=== PATIENT | male | born 1980 | race Caucasian/White ===

== ENCOUNTER 2018-05-24 19:31 | Emergency (ER) | payer MEDICAID ==
[~2018-05-24] VITALS: Ht 185.4 cm; Wt 158.8 kg
[~2018-05-24 19:31] MED LIST: ACET500; ALBU90I INH; AMOCLA875 PO; AMOX500 PO; AMOX875 PO; ATOM10; AZIT250 PO; Bactrim Ds Tab1 EACH PO; CEPH500 PO; CYCL10 PO; Colace100 MG PO; Cyclobenzaprine5 MG PO; DEXGUASY PO; GLIM4 PO; GLIP5 PO; GUAPHELA PO; HYDACE5 PO; IBUP600 PO; IBUP800 PO; INSDET100; INSDET100 SC; INSDET100 SQ; ISODICACE PO; LEVFLO500 PO; MAGCIT300 PO; METF500 PO; METO10 PO; MUPI2TO TOP; NAPR500 PO; NAPR500ERA; NAPR550 PO; NYST100TC TOP; Norco 5-325 Ta1 EACH PO; OXYACE5T PO; PENVK500 PO; PHENA200 PO; PIOG30 PO; PRED10 PO; PROACE100 PO; Percocet 5-3251 EACH PO; Phenergan25 M1 PO; RXCEPH500 PO; RXHYDACE PO; RXNAPNA550 PO; RXOXYACE PO; RXPENVK250 PO; RXPHEN200 PO; RXPROACE PO; RXSULTRIDS PO; SULTRIDS PO; TRAM50 PO; UNKNOWN ANTIBIOTIC; Ultram50 MG PO; VICTOZA INJ SQ; Zofran Odt4 MG SL; [UNRECOGNIZED DRUG - REMARK]
[2018-05-24 20:20] LABS: BASOPHILS ABSOLUTE AUTO 0.05 K/mm3 (0.00-0.23); BASOPHILS PERCENT AUTO 0 % (0-2); EOSINOPHILS ABSOLUTE AUTO 0.17 K/mm3 (0.00-0.68); EOSINOPHILS PERCENT AUTO 1 % (0-6); Hematocrit 44.5 % (37.0-53.0); Hemoglobin 14.7 g/dL (13.5-17.5); IMMATURE GRAN ABSOLUTE AUTO 0.04 K/mm3 (0.00-0.10); IMMATURE GRAN PERCENT AUTO 0 % (0-1); LYMPHOCYTES ABSOLUTE AUTO 2.58 K/mm3 (0.84-5.20); LYMPHOCYTES PERCENT AUTO 19 % (21-46); MONOCYTES ABSOLUTE AUTO 0.93 K/mm3 (0.16-1.47); MONOCYTES PERCENT AUTO 7 % (4-13); Mean Corpuscular HGB 28.2 pg (26.0-34.0); Mean Corpuscular Volume 85 fL (80-100); Mean Platelet Volume 9.9 fL (9.1-12.4); NEUTROPHILS ABSOLUTE AUTO 9.88 K/mm3 (1.96-9.15); NEUTROPHILS PERCENT AUTO 72 % (41-73); Platelet Count 412 K/mm3 (150-400); RDW Coefficient Variation 12.5 % (11.7-14.2); RDW Standard Deviation 38.9 fL (35.1-46.3); Red Blood Cell Count 5.21 M/mm3 (4.30-5.90); White Blood Cell Count 13.65 K/mm3 (4.00-11.30)
[2018-05-24 20:31] LABS: Alanine Aminotransfer (ALT/SGP 30 U/L (12-78); Albumin, Blood 3.6 g/dL (3.4-5.0); Albumin/Globulin Ratio 0.8 (0.8-1.8); Alk Phos 88 U/L (50-136); Anion Gap 9 mmol/L (6-16); Aspartate Aminotrans (AST/SGOT 10 U/L (12-37); Bilirubin, Total 0.3 mg/dL (0.1-1.0); Blood Urea Nitrogen 18 mg/dL (8-24); Bun/Creatinine Ratio 24.8 (12.0-20.0); CO2, Blood 26 mmol/L (21-32); Calcium, Blood 8.9 mg/dL (8.5-10.1); Chloride, Blood 104 mmol/L (98-108); Creatinine, Blood 0.73 mg/dL (0.60-1.20); Globulin, Blood 4.7 g/dL (2.2-4.0); Glomerular Filtration Rate >60 (60-); Glucose, Blood 213 mg/dL (70-99); Potassium, Blood 4.2 mmol/L (3.5-5.5); Sodium, Blood 139 mmol/L (136-145); Total Protein, Blood 8.3 g/dL (6.4-8.2); Troponin I <0.015 ng/mL (0.000-0.040)
== END 2018-05-24 23:20 | disposition home or self-care (01) ==
LOC: ER 19:31
PROVIDERS: Physician Assistant
DX: R07.9 Chest pain, unspecified (principal); E11.9 Type 2 diabetes mellitus without complications; Z88.5 Allergy status to narcotic agent; Z79.84 Long term (current) use of oral hypoglycemic drugs; Z87.442 Personal history of urinary calculi
CPT/HCPCS: 36415; 71260; 80053; 84484; 85025; 93005; 93010; 93971; 96360; 96361; 99284-25; J7030; Q9967

== ENCOUNTER 2019-05-28 19:28 | Emergency (ER) | payer MEDICAID ==
[~2019-05-28] VITALS: Ht 185.4 cm; Wt 154.2 kg
[2019-05-28] MEDS ORDERED: Hydromet Syrup473 ML PO (20:18)
[2019-05-28] MEDS ORDERED: BENZ100A PO (20:18)
== END 2019-05-28 20:29 | disposition home or self-care (01) ==
LOC: ER 19:28
DX: J20.9 Acute bronchitis, unspecified (principal); Z88.5 Allergy status to narcotic agent; Z79.84 Long term (current) use of oral hypoglycemic drugs; Z79.4 Long term (current) use of insulin; E66.9 Obesity, unspecified
CPT/HCPCS: 71046; 99283-25

== ENCOUNTER 2019-10-21 18:42 | Emergency (ER) | payer SELFPAY ==
[~2019-10-21] VITALS: Ht 185.4 cm; Wt 160.6 kg
[~2019-10-21 18:42] MED LIST changes: +BENZ100A PO; +Hydromet Syrup473 ML PO
[2019-10-21] MEDS ORDERED: Norco 5-325 Ta1 EACH PO (20:04)
== END 2019-10-21 20:24 | disposition home or self-care (01) ==
LOC: ER 18:42
DX: S62.316A Displaced fracture of base of fifth metacarpal bone, right hand, initial encounter for closed fracture (principal); E11.9 Type 2 diabetes mellitus without complications; L40.9 Psoriasis, unspecified; Z88.5 Allergy status to narcotic agent; Z79.84 Long term (current) use of oral hypoglycemic drugs; W01.0XXA Fall on same level from slipping, tripping and stumbling without subsequent striking against object, initial encounter
CPT/HCPCS: 29125; 73110; 73120; 99283-25; A9270-GY

== ENCOUNTER 2020-01-31 16:59 | Emergency (ER) | payer SELFPAY ==
[~2020-01-31] VITALS: Ht 185.4 cm; Wt 158.8 kg
[2020-01-31] MEDS ORDERED: PENVK500 PO (17:21)
== END 2020-01-31 17:25 | disposition home or self-care (01) ==
LOC: ER 16:59
DX: K04.7 Periapical abscess without sinus (principal); E11.9 Type 2 diabetes mellitus without complications; Z79.84 Long term (current) use of oral hypoglycemic drugs; Z88.5 Allergy status to narcotic agent
CPT/HCPCS: 99282

== ENCOUNTER 2020-08-06 14:32 | Emergency (ER) | payer OTHER ==
[~2020-08-06] VITALS: Ht 185.4 cm; Wt 147.4 kg
[2020-08-06] MEDS ORDERED: Veetids 500500 MG PO (14:47)
== END 2020-08-06 14:53 | disposition home or self-care (01) ==
LOC: ER 14:32
DX: K04.7 Periapical abscess without sinus (principal); E11.9 Type 2 diabetes mellitus without complications; Z88.5 Allergy status to narcotic agent; Z79.4 Long term (current) use of insulin; Z87.442 Personal history of urinary calculi
CPT/HCPCS: 99282

== ENCOUNTER 2020-11-14 19:00 | Emergency (ER) | payer SELFPAY ==
[~2020-11-14] VITALS: Ht 182.9 cm; Wt 156.5 kg
[~2020-11-14 19:00] MED LIST changes: +Veetids 500500 MG PO
[2020-11-14 22:23] LABS: BASOPHILS ABSOLUTE AUTO 0.05 K/mm3 (0.00-0.23); BASOPHILS PERCENT AUTO 0 % (0-2); EOSINOPHILS PERCENT AUTO 3 % (0-6); Hematocrit 46.4 % (37.0-53.0); Hemoglobin 15.6 g/dL (13.5-17.5); IMMATURE GRAN ABSOLUTE AUTO 0.05 K/mm3 (0.00-0.10); IMMATURE GRAN PERCENT AUTO 0 % (0-1); LYMPHOCYTES ABSOLUTE AUTO 2.55 K/mm3 (0.84-5.20); LYMPHOCYTES PERCENT AUTO 21 % (21-46); MONOCYTES ABSOLUTE AUTO 0.87 K/mm3 (0.16-1.47); MONOCYTES PERCENT AUTO 7 % (4-13); Mean Corpuscular HGB 28.6 pg (26.0-34.0); Mean Corpuscular HGB Conc 33.6 g/dL (31.5-36.5); Mean Corpuscular Volume 85 fL (80-100); Mean Platelet Volume 10.7 fL (9.1-12.4); NEUTROPHILS ABSOLUTE AUTO 8.03 K/mm3 (1.96-9.15); NEUTROPHILS PERCENT AUTO 67 % (41-73); Platelet Count 322 K/mm3 (150-400); RDW Coefficient Variation 12.7 % (11.7-14.2); RDW Standard Deviation 38.6 fL (35.1-46.3); Red Blood Cell Count 5.45 M/mm3 (4.30-5.90); White Blood Cell Count 11.95 K/mm3 (4.00-11.30)
[2020-11-14 22:44] LABS: Alanine Aminotransfer (ALT/SGP 32 U/L (12-78); Albumin, Blood 3.4 g/dL (3.4-5.0); Albumin/Globulin Ratio 0.8 (0.8-1.8); Alk Phos 98 U/L (50-136); Anion Gap 6 mmol/L (6-16); Aspartate Aminotrans (AST/SGOT 19 U/L (12-37); Bilirubin, Total 0.5 mg/dL (0.1-1.0); Blood Urea Nitrogen 13 mg/dL (8-24); CO2, Blood 29 mmol/L (21-32); Calcium, Blood 9.3 mg/dL (8.5-10.1); Chloride, Blood 102 mmol/L (98-108); Creatinine, Blood 0.52 mg/dL (0.60-1.20); Globulin, Blood 4.5 g/dL (2.2-4.0); Glomerular Filtration Rate >60 (60-); Glucose, Blood 301 mg/dL (70-99); Potassium, Blood 4.4 mmol/L (3.5-5.5); Sodium, Blood 137 mmol/L (136-145); Total Protein, Blood 7.9 g/dL (6.4-8.2); Troponin I <0.015 ng/mL (0.000-0.040)
== END 2020-11-14 23:53 | disposition home or self-care (01) ==
LOC: ER 19:00
PROVIDERS: Emergency Medicine
DX: R07.89 Other chest pain (principal); E11.9 Type 2 diabetes mellitus without complications; Z88.5 Allergy status to narcotic agent; Z79.4 Long term (current) use of insulin; Z87.442 Personal history of urinary calculi
CPT/HCPCS: 36415; 71046; 80053; 84484; 85025; 85379; 93005; 93010; 96374; 99284-25; J1885

== ENCOUNTER 2021-01-09 09:41 | Emergency (ER) | payer SELFPAY ==
[~2021-01-09] VITALS: Ht 185.4 cm; Wt 149.7 kg
== END 2021-01-09 10:52 | disposition home or self-care (01) ==
LOC: ER 09:41
DX: H57.89 Other specified disorders of eye and adnexa (principal); E11.9 Type 2 diabetes mellitus without complications; Z87.442 Personal history of urinary calculi
CPT/HCPCS: 99283; A9270

== ENCOUNTER 2021-05-11 16:38 | Emergency (ER) | payer SELFPAY ==
[~2021-05-11] VITALS: Ht 185.4 cm; Wt 149.7 kg
[2021-05-11] MEDS ORDERED: SULTRIDS PO (20:28)
[2021-05-11] MEDS ORDERED: IBUP600 PO (20:28)
== END 2021-05-11 20:57 | disposition home or self-care (01) ==
LOC: ER 16:38
DX: L03.115 Cellulitis of right lower limb (principal); L02.415 Cutaneous abscess of right lower limb; E11.9 Type 2 diabetes mellitus without complications
CPT/HCPCS: 10060; 99283-25; A9270

== ENCOUNTER 2022-03-26 14:13 | Inpatient (IN) | payer SELFPAY ==
[~2022-03-26] VITALS: Ht 185.4 cm; Wt 150.0 kg
[2022-03-26 15:23] LABS: BASOPHILS ABSOLUTE AUTO 0.03 K/mm3 (0.00-0.23); BASOPHILS PERCENT AUTO 0 % (0-2); EOSINOPHILS ABSOLUTE AUTO 0.07 K/mm3 (0.00-0.68); EOSINOPHILS PERCENT AUTO 0 % (0-6); Hematocrit 44.3 % (37.0-53.0); IMMATURE GRAN ABSOLUTE AUTO 0.12 K/mm3 (0.00-0.10); IMMATURE GRAN PERCENT AUTO 1 % (0-1); LYMPHOCYTES ABSOLUTE AUTO 1.52 K/mm3 (0.84-5.20); LYMPHOCYTES PERCENT AUTO 7 % (21-46); MONOCYTES ABSOLUTE AUTO 2.02 K/mm3 (0.16-1.47); MONOCYTES PERCENT AUTO 10 % (4-13); Mean Corpuscular HGB 28.3 pg (26.0-34.0); Mean Corpuscular HGB Conc 33.9 g/dL (31.5-36.5); Mean Corpuscular Volume 84 fL (80-100); NEUTROPHILS ABSOLUTE AUTO 17.05 K/mm3 (1.96-9.15); NEUTROPHILS PERCENT AUTO 82 % (41-73); Platelet Count 399 K/mm3 (150-400); RDW Standard Deviation 36.7 fL (35.1-46.3); White Blood Cell Count 20.81 K/mm3 (4.00-11.30)
[2022-03-26 15:52] LABS: Alanine Aminotransfer (ALT/SGP 19 U/L (12-78); Albumin, Blood 2.8 g/dL (3.4-5.0); Albumin/Globulin Ratio 0.5 (0.8-1.8); Alk Phos 106 U/L (50-136); Anion Gap 13 mmol/L (6-16); Aspartate Aminotrans (AST/SGOT 14 U/L (12-37); Blood Urea Nitrogen 11 mg/dL (8-24); Bun/Creatinine Ratio 17.9 (12.0-20.0); C-REACTIVE PROTEIN, EXT RANGE >19.000 mg/dL (0.000-0.300); CO2, Blood 21 mmol/L (21-32); Calcium, Blood 9.3 mg/dL (8.5-10.1); Chloride, Blood 97 mmol/L (98-108); Creatinine, Blood 0.61 mg/dL (0.60-1.20); Globulin, Blood 5.3 g/dL (2.2-4.0); Glomerular Filtration Rate 125 (60-); Glucose, Blood 299 mg/dL (70-99); Potassium, Blood 4.3 mmol/L (3.5-5.5); Sodium, Blood 131 mmol/L (136-145); Total Protein, Blood 8.1 g/dL (6.4-8.2)
[2022-03-26 19:54] LABS: Influenza A, PCR NEGATIVE (NEGATIVE); Influenza B, PCR NEGATIVE (NEGATIVE); Resp Syncytial Virus, PCR NEGATIVE (NEGATIVE)
[2022-03-26 20:08] LABS: SARS-Cov-2 (COVID-19) PCR, MMC POSITIVE (NEGATIVE)
--- NOTE | 2022-03-26 21:14 | NUR ---
03/26/222113 Malika Bar NO PREOP ANTIBIOTICS PATIENT RECEIVED ANTIBIOTICS PRIOR TO ARRIVING IN THE OR.
--- NOTE | 2022-03-26 22:40 | NUR ---
TRANSPORTED TO ROOM FROM ICU RECOVERY VIA STRETCHER. TRANFERED TO BED USING SLING AND FULL STAFF ASSISTANCE, TOLERATED WELL. RECEIVED HAND OFF USING SBAR AT BEDSIDE FROM Manju WARREN RN. [place], FOLLOWS ALL COMMADS. LEFT AND RIGHT AC SL PIV'S ARE PATENT. RIGHT AC PIV STARTED WITH NS AT 150ML/HR. SENIOR DATABASE ADMINISTRATOR FENTANYL ORDERED, WILL GET STARTED SREEKANTH. LEFT AC PIV AVAILABLE FOR ANTIBOTICS WHEN DUE. PERLA CATH IS PATENT, DRAINING CONCENTRATED URINE TO GRAVITY. REDNESS AND EDEMA NOTED TO GROIN. GAUZE HELD IN PLACE VIA MADONNA PANTIES. SCD'S TO BLE ARE IN PLACE AND WORKING PROPERLY. SAFETY MEASURES IN PLACE. WILL CONTINUNE TO MONITOR AND ADDRESS CHANGES THE OCCUR.
--- NOTE | 2022-03-27 05:31 | NUR ---
LYING IN SEMI FOWLERS WITH EYES CLOSED. CPAP IN PLACE WITH BIOX. LEFT HIP DRESSING IN PLACE AND IS C/D/I. PT HAS GOTTEN OOB TO URINATE X2 THIS SHIFT AND HAS TOLERATED WELL. PIV X2 TO BIATERAL AC'S ARE PATENT, FLUSHING WITH EASE WHILE INFUSING NS AT 150ML/HR TO LEFT AC WITH DEMAND ONLY GRANULATING BLENDER AND KVO NS TO RIGHT AC PIV. GROIN/ZAYNAB AREA RED AND COVERED IN GAUZE WITH MESH PANTIES IN PLACE. DENIES PAIN, DISCOMFORT OR FURTHER NEEDS AT THIS TIME. SAFETY MEASURES IN PLACE. WILL CONTINUE TO MONITOR FOR CHANGES AND ADDRESS THEY ARISE. WILL GIVE HAND OFF TO ONCOMING SHIFT USING SBAR.
[2022-03-27 05:35] LABS: Hematocrit 38.5 % (37.0-53.0); Hemoglobin 13.2 g/dL (13.5-17.5); Mean Corpuscular HGB 28.4 pg (26.0-34.0); Mean Corpuscular HGB Conc 34.3 g/dL (31.5-36.5); Mean Corpuscular Volume 83 fL (80-100); Platelet Count 372 K/mm3 (150-400); RDW Standard Deviation 36.8 fL (35.1-46.3); Red Blood Cell Count 4.64 M/mm3 (4.30-5.90)
[2022-03-27 06:05] LABS: Bun/Creatinine Ratio 22.3 (12.0-20.0); Calcium, Blood 8.5 mg/dL (8.5-10.1); Creatinine, Blood 0.49 mg/dL (0.60-1.20); Potassium, Blood 4.6 mmol/L (3.5-5.5)
--- NOTE | 2022-03-27 12:16 | NUR ---
FAMILY VISITING PT
--- NOTE | 2022-03-27 18:32 | NUR ---
SHIFT SUMMARY: VSS, NO ACUTE CHANGES. PT TOLERATED PO INTAKE WELL, DENIES N/V. PT RATES PAIN AT 4/10 AFTER UP IN BATHROOM AND URINATING, STANDING IN ROOM. MEDICATED PER OCT. PERLA CATHETER REMOVED THIS SHIFT. WOUND DRESSING/PACKING CHANGED THIS THIS. WOUND WITH MODERATE DRAINAGE, DRESSING REMAINS C/D/I. PT URINATED APPROX 2 HRS AFTER PERLA REMOVAL.
[2022-03-28 05:26] LABS: BASOPHILS ABSOLUTE AUTO 0.04 K/mm3 (0.00-0.23); BASOPHILS PERCENT AUTO 0 % (0-2); EOSINOPHILS ABSOLUTE AUTO 0.02 K/mm3 (0.00-0.68); EOSINOPHILS PERCENT AUTO 0 % (0-6); Hematocrit 38.7 % (37.0-53.0); Hemoglobin 13.1 g/dL (13.5-17.5); IMMATURE GRAN PERCENT AUTO 1 % (0-1); LYMPHOCYTES ABSOLUTE AUTO 1.21 K/mm3 (0.84-5.20); LYMPHOCYTES PERCENT AUTO 6 % (21-46); MONOCYTES ABSOLUTE AUTO 1.76 K/mm3 (0.16-1.47); MONOCYTES PERCENT AUTO 9 % (4-13); Mean Corpuscular HGB 28.5 pg (26.0-34.0); Mean Corpuscular HGB Conc 33.9 g/dL (31.5-36.5); Mean Corpuscular Volume 84 fL (80-100); NEUTROPHILS ABSOLUTE AUTO 15.97 K/mm3 (1.96-9.15); NEUTROPHILS PERCENT AUTO 84 % (41-73); Platelet Count 419 K/mm3 (150-400); RDW Coefficient Variation 12.3 % (11.7-14.2); RDW Standard Deviation 37.4 fL (35.1-46.3); Red Blood Cell Count 4.59 M/mm3 (4.30-5.90)
--- NOTE | 2022-03-28 05:44 | NUR ---
LYING IN SEMI FOLWERS WITH EYES CLOSED. PAIN MANAGED WITH PO PAIN MEDS. PT ABLE TO REST WELL THIS SHIFT. AMBULATED TO COMMODE WITHOUT ASSISTANCE, TOLERATES WELL. DENIES FURTHER NEEDS OR WANTS AT THIS TIME. SAFETY MEASURES IN PLACE. WILL CONTINUE TO MONITOR AND ADDRESS NEEDS THEY ARISE.
[2022-03-28 05:48] LABS: Bun/Creatinine Ratio 33.1 (12.0-20.0); Calcium, Blood 8.7 mg/dL (8.5-10.1); Creatinine, Blood 0.48 mg/dL (0.60-1.20); Potassium, Blood 4.3 mmol/L (3.5-5.5)
--- NOTE | 2022-03-28 11:04 | NUR ---
dr rose mary sharma, removed dressing, pt showering now, will repack after shower
--- NOTE | 2022-03-28 18:08 | NUR ---
SHIFT SUMMARY: PT REMAINED A/O X 4, PLEASANT/COOPERATIVE, NO ACUTE CHANGES. PT AMBULATED IN HALLWAY, SHOWERED, TOLERATED PO INTAKE, PAIN CONTROLLED PER OCT, DRESSING CHANGED, CBG BETWEEN 300-311 THIS SHIFT, MEDICATED PER OCT. PT'S WITH PT T/O MUCH OF THE SHIFT. PT RELAYS HE IS FEELING "WORN OUT" AFTER ACTIVITY, APPEARS TO BE NAPPING ON SEVERAL NURSE ROUNDINGS.
--- NOTE | 2022-03-29 04:27 | NUR ---
POD 3 S/P I&D OF R GROIN. PT VSS T/O NIGHT. DRESSING REMAINED IN PLACE W/SMALL AMT SS DRNG. PT HESITANT TO TAKE PAIN MEDS, DID TAKE 1 OXYCODONE W/REP RELIEF. PT CAROLE REG PO, NO C/O N/V, IS VOIDING URINE W/O DIFFICULTY. PT AMB INDEP IN ROOM, CAROLE WELL. EDUCATION R/T DM AND MEDICATIONS PROVIDED.
--- NOTE | 2022-03-29 19:54 | NUR ---
SHIFT SUMMARY POD3 R GROIN I&D, A/O X4, VSS TOLERATING PO, PAIN MANAGED PER EMAR, VOIDING, BM THIS SHIFT WITH REPORTS OF LOOSE STOOLS AND ADRESSED BY HOSPITALIST. BLOOD SUGAR POORLY MANAGED WITH INCREASE TO HIGH CORRECTION SCALE AND CONTINUED HIGH SUGARS. DRESSING CHANGED ONCE BY SURGEON AND 2 MORE TIMES BY THIS RN, PT TOOK 2 SHOWERS THIS SHIFT. CALL LIGHT IN REACH, REPORT GIVEN TO NOC RN.
--- NOTE | 2022-03-30 04:51 | NUR ---
VSS, POD 4, PT HAS BEEN NPO SINCE 0000 ON 03/30/22. PT HAS NOT HAD DIARRHEA TONIGHT, VOIDING W/O DIFFICULTY. THE PT WAS MEDICATED PER THE EMAR FOR BACK PAIN. PERINEAL DRESSING REMAINED C/D/I. PT WAS ABLE TO SLEEP T/O THE NIGHT.
[2022-03-30 05:17] LABS: BASOPHILS ABSOLUTE AUTO 0.04 K/mm3 (0.00-0.23); BASOPHILS PERCENT AUTO 0 % (0-2); EOSINOPHILS ABSOLUTE AUTO 0.12 K/mm3 (0.00-0.68); EOSINOPHILS PERCENT AUTO 1 % (0-6); Hematocrit 36.7 % (37.0-53.0); Hemoglobin 12.5 g/dL (13.5-17.5); IMMATURE GRAN ABSOLUTE AUTO 0.09 K/mm3 (0.00-0.10); IMMATURE GRAN PERCENT AUTO 1 % (0-1); LYMPHOCYTES ABSOLUTE AUTO 1.81 K/mm3 (0.84-5.20); LYMPHOCYTES PERCENT AUTO 13 % (21-46); MONOCYTES ABSOLUTE AUTO 1.55 K/mm3 (0.16-1.47); MONOCYTES PERCENT AUTO 12 % (4-13); Mean Corpuscular HGB 28.6 pg (26.0-34.0); Mean Corpuscular HGB Conc 34.1 g/dL (31.5-36.5); Mean Corpuscular Volume 84 fL (80-100); Mean Platelet Volume 9.7 fL (9.1-12.4); NEUTROPHILS PERCENT AUTO 73 % (41-73); Platelet Count 455 K/mm3 (150-400); RDW Coefficient Variation 12.1 % (11.7-14.2); RDW Standard Deviation 37.2 fL (35.1-46.3); Red Blood Cell Count 4.37 M/mm3 (4.30-5.90); White Blood Cell Count 13.51 K/mm3 (4.00-11.30)
[2022-03-30 05:35] LABS: Bun/Creatinine Ratio 19.5 (12.0-20.0); Calcium, Blood 8.6 mg/dL (8.5-10.1); Creatinine, Blood 0.41 mg/dL (0.60-1.20); Potassium, Blood 3.6 mmol/L (3.5-5.5)
--- NOTE | 2022-03-30 15:22 | NUR ---
PATIENT TO DAY SURGERY VIA [place] WITH DEIRDRE FRANCIS.
--- NOTE | 2022-03-30 15:53 | NUR ---
History, Chart, Medications and Allergies reviewed before start of procedure.Pre-Op teaching done. Pt verbalizes understanding. Patient confirms NPO status and agrees with scheduled surgery.
--- NOTE | 2022-03-30 17:02 | NUR ---
03/30/22 1702 Kathie Cobos [facility]
--- NOTE | 2022-03-30 18:10 | NUR ---
PATIENT RETURNED TO ROOM FROM PACU. VSS ON RA. LUNGS CLEAR. PATIENT STOOD AND TRANSFERRED FROM [facility] TO BED, DID VERY WELL. WANDA DRAIN TO R GROIN W/ GAUZE AND MESH UNDERWEAR HOLDING GAUZE IN PLACE. TOLERATING CLEAR LIQUIDS AT THIS TIME. CALL LIGHT IN REACH.
--- NOTE | 2022-03-31 04:02 | NUR ---
VSS, POD0 FOR 2ND I&D OF THE RIGHT GROIN. THE PT HAS NOT SLEPT MUCH TONIGHT, HE IS VERY UNCOMFORTABLE IN THE HOSPITAL BED. T/O THE NIGHT I HAVE BEEN ASSESSING THE PATIENTS PAIN LEVEL AND HE HAS REPORTED LITTLE TO NO PAIN, PT DENIES NEED FOR PAIN MEDS. PT IS AMBULATING INDEPENDENTLY TO THE BATHROOM TO HAVE BM'S. BOWEL AND BLADDER ARE WORKING W/O DIFFICULTY. PT IS TOLLERATING PO INTAKE WELL, NO N/V. THE OUTTER 4X4'S AND ABD PAD WERE REPLACED ONCE DURING THE SHIFT DUE TO THEM FALLING OFF IN THE BATHROOM. PT HAS REMAINED PLEASENT AND COOPERTIVE WITH CARE, VOICING NEEDS APPROPRIATELY.
--- NOTE | 2022-03-31 17:02 | NUR ---
SHIFT SUMMARY POD 1 REPEAT I&D OF R GROIN ABCESS. WANDA DRAINS REMAIN IN [place] WITH PACKING AND GAUZE WELL. CHANGED X2 THIS SHIFT D/T DIFFICULTY KEEPING IN PLACE WHEN GOING TO THE BATHROOM AND MOVING AROUND. PATIENT TOLERATES WELL, DENIES PAIN AND NEED FOR PAIN MEDICATION. UP IN ROOM, AMBULATIING HALLS, AND UP TO BATHROOM T/O SHIFT. EATING, DRINKING, & VOIDING WELL. BM TODAY. CBG'S REMAIN HIGH, INSULING COVERAGE PER EMAR. CALLS APPROPRIATELY, WILL REPORT TO ONCOMING RN.
--- NOTE | 2022-03-31 22:41 | NUR ---
CBG 394- PER SCALE,PT IS TO TO RECEIVE [address]Karri CALLED DR COOK AND NOTIFIED OF CBG AND INSULIN TO BE GIVEN PER SCALE WELL PER ROUTINE ORDERS- GLARGINE 40 UNITS. NO NEW ORDERS RECEIVED.
[2022-04-01 04:17] LABS: BASOPHILS ABSOLUTE AUTO 0.05 K/mm3 (0.00-0.23); BASOPHILS PERCENT AUTO 0 % (0-2); EOSINOPHILS ABSOLUTE AUTO 0.19 K/mm3 (0.00-0.68); EOSINOPHILS PERCENT AUTO 2 % (0-6); Hemoglobin 12.9 g/dL (13.5-17.5); IMMATURE GRAN ABSOLUTE AUTO 0.18 K/mm3 (0.00-0.10); IMMATURE GRAN PERCENT AUTO 1 % (0-1); LYMPHOCYTES ABSOLUTE AUTO 2.25 K/mm3 (0.84-5.20); LYMPHOCYTES PERCENT AUTO 18 % (21-46); MONOCYTES ABSOLUTE AUTO 1.08 K/mm3 (0.16-1.47); MONOCYTES PERCENT AUTO 9 % (4-13); Mean Corpuscular HGB 27.9 pg (26.0-34.0); Mean Corpuscular HGB Conc 33.1 g/dL (31.5-36.5); Mean Corpuscular Volume 84 fL (80-100); Mean Platelet Volume 9.4 fL (9.1-12.4); NEUTROPHILS ABSOLUTE AUTO 8.72 K/mm3 (1.96-9.15); NEUTROPHILS PERCENT AUTO 70 % (41-73); Platelet Count 538 K/mm3 (150-400); RDW Coefficient Variation 12.3 % (11.7-14.2); RDW Standard Deviation 37.1 fL (35.1-46.3); Red Blood Cell Count 4.62 M/mm3 (4.30-5.90); White Blood Cell Count 12.47 K/mm3 (4.00-11.30)
[2022-04-01 04:39] LABS: Calcium, Blood 8.6 mg/dL (8.5-10.1); Creatinine, Blood 0.6 mg/dL (0.60-1.20); Potassium, Blood 3.8 mmol/L (3.5-5.5)
--- NOTE | 2022-04-01 07:37 | NUR ---
summary hoping for discharge today.
--- NOTE | 2022-04-01 07:47 | NUR ---
ASSUMED CARE: PT SITTING UPRIGHT IN BED, TALKING TO STAFF DURING BEDSIDE REPORT. DENIES NEEDS OR CONCERNS AT THIS TIME.
[2022-04-01] MEDS ORDERED: Acetaminophen325 M1 PO (11:07)
[2022-04-01] MEDS ORDERED: INSULANPEN SC (11:08)
[2022-04-01] MEDS ORDERED: VISBIOME 112.51 EACH PO (11:10)
[2022-04-01] MEDS ORDERED: AMOCLA875 PO (11:13)
[2022-04-01] MEDS ORDERED: HUMULIN R100 UNIT/2 IM (11:57)
[2022-04-01] MEDS ORDERED: ANTIFUNGAL POWD85 GM TOP (11:58)
--- NOTE | 2022-04-01 12:18 | NUR ---
DISCHARGE NOTE PT A&Ox4, VSS, SpO2> 92% RA. PT IND IN ROOM. FAMILY AT BEDSIDE WHILE DISCHARGE INSTRUCTIONS WERE PROVIDED. DISCUSSED USE OF INSULIN PENS AND READING THE MEDIUM SLIDING SCALE CHART. PT GETTING DRESSED AND FAMILY GATHERING BELONGINGS. PT TO BE ESCORTED OUT VIA WHEELCHAIR BY STAFF.
== END 2022-04-01 12:35 | disposition home or self-care (01) | DRG 853 ==
LOC: ER 14:13 → SURS 20:13
PROVIDERS: Internal Medicine; Physician Assistant; Student in an Organized Health Care Education/Training Program; Surgery; ADMIT Internal Medicine
PROC: 0WBM0ZZ Excision of Male Perineum, Open Approach (ICD-10-PCS; 2022-03-26)
PROC: 8E0ZXY6 Isolation (ICD-10-PCS; 2022-03-26)
PROC: 0W9M0ZZ Drainage of Male Perineum, Open Approach (ICD-10-PCS; 2022-03-26)
PROC: 3E03329 Introduction of Other Anti-infective into Peripheral Vein, Percutaneous Approach (ICD-10-PCS; principal; 2022-03-26 19:45)
PROC: 0Y950ZZ Drainage of Right Inguinal Region, Open Approach (ICD-10-PCS; 2022-03-30)
DX: A41.01 Sepsis due to Methicillin susceptible Staphylococcus aureus (principal); U07.1 COVID-19; L02.214 Cutaneous abscess of groin; E87.1 Hypo-osmolality and hyponatremia; L02.215 Cutaneous abscess of perineum; N49.3 Fournier gangrene; E66.01 Morbid (severe) obesity due to excess calories; E11.9 Type 2 diabetes mellitus without complications; N47.1 Phimosis; L40.9 Psoriasis, unspecified; Z68.35 Body mass index [BMI] 35.0-35.9, adult; Z87.442 Personal history of urinary calculi; Z90.89 Acquired absence of other organs; Z79.84 Long term (current) use of oral hypoglycemic drugs
CPT/HCPCS: 0241U; 36415; 71045; 72193; 80048; 80053; 82947; 83036; 83605; 85025; 85027; 86140; 87040; 87070; 87075; 87077; 87147; 87186; 87205; 93005; 93010; 96365-59; 96367-59; 96375-59; 99285-25; A9270; C9113; J0295; J1100; J1650; J1815; J2250; J2270; J2405; J2543; J2704; J2710; J2765; J2795; J3010; J3370; J7030; J7040; J7060; J7120; Q9967

== ENCOUNTER 2022-04-16 08:06 | Day surgery (SDC) | payer SELFPAY ==
[~2022-04-16] VITALS: Ht 182.9 cm; Wt 147.5 kg
[~2022-04-16 08:06] MED LIST changes: +ANTIFUNGAL POWD85 GM TOP; +Acetaminophen325 M1 PO; +HUMULIN R100 UNIT/2 IM; +INSULANPEN SC; +VISBIOME 112.51 EACH PO
--- NOTE | 2022-04-16 11:45 | NUR ---
DR BLACKWOOD INSTRUCTED RN THAT SHE DID NOT HAVE TO TAKE ANOTHER BS IN PACU
--- NOTE | 2022-04-16 11:54 | NUR ---
PT STATES THAT HE HAS TAKEN NORCO BEFORE WITHOUT ANY PROBLEM
--- NOTE | 2022-04-16 13:13 | NUR ---
Patient up to Ambulate independently. Gait steady. Discharge instructions reviewed with patient. Patient verbalizes understanding. Copy given to patient to take home, WELL . Patient States Post-Procedure ride home has been arranged. Discharged via wheelchair to private car for ride home. PT GIVEN DRESSING SUPPLIES. PT'S REPORTS THAT DR STATED THAT HE WAS ELECTRONICALLY SENDING NEW ABX SCRIPT TO PT'S PHARMACY.
== END 2022-04-16 13:13 | disposition home or self-care (01) ==
LOC: ORD 08:06 → ORSCMMR 08:07 → ORD 09:00
PROVIDERS: Surgery
PROC: 0J9L0ZZ Drainage of Right Upper Leg Subcutaneous Tissue and Fascia, Open Approach (ICD-10-PCS; principal; 2022-04-16 11:00)
DX: L02.214 Cutaneous abscess of groin (principal); E11.9 Type 2 diabetes mellitus without complications; I25.2 Old myocardial infarction; Z79.84 Long term (current) use of oral hypoglycemic drugs; Z88.5 Allergy status to narcotic agent; E66.01 Morbid (severe) obesity due to excess calories; Z68.41 Body mass index [BMI] 40.0-44.9, adult
CPT/HCPCS: 82947; A9270; J1100; J2250; J2405; J2704; J3010; J7120

== ENCOUNTER → 2022-04-30 | Outpatient (CLI) | payer SELFPAY ==
[2022-04-30 14:13] LABS: BASOPHILS ABSOLUTE AUTO 0.06 K/mm3 (0.00-0.23); BASOPHILS PERCENT AUTO 1 % (0-2); EOSINOPHILS PERCENT AUTO 2 % (0-6); Hematocrit 40.9 % (37.0-53.0); Hemoglobin 13.7 g/dL (13.5-17.5); IMMATURE GRAN ABSOLUTE AUTO 0.06 K/mm3 (0.00-0.10); IMMATURE GRAN PERCENT AUTO 1 % (0-1); LYMPHOCYTES ABSOLUTE AUTO 2.55 K/mm3 (0.84-5.20); LYMPHOCYTES PERCENT AUTO 22 % (21-46); MONOCYTES ABSOLUTE AUTO 1.03 K/mm3 (0.16-1.47); MONOCYTES PERCENT AUTO 9 % (4-13); Mean Corpuscular HGB 28.2 pg (26.0-34.0); Mean Corpuscular HGB Conc 33.5 g/dL (31.5-36.5); Mean Corpuscular Volume 84 fL (80-100); Mean Platelet Volume 10.3 fL (9.1-12.4); NEUTROPHILS ABSOLUTE AUTO 7.77 K/mm3 (1.96-9.15); NEUTROPHILS PERCENT AUTO 67 % (41-73); Platelet Count 456 K/mm3 (150-400); RDW Coefficient Variation 13.4 % (11.7-14.2); RDW Standard Deviation 41.1 fL (35.1-46.3); Red Blood Cell Count 4.86 M/mm3 (4.30-5.90); White Blood Cell Count 11.67 K/mm3 (4.00-11.30)
[2022-04-30 14:50] LABS: Very Low Density Lipoprot Chol 31 mg/dL (6-28)
[2022-04-30 14:53] LABS: Alanine Aminotransfer (ALT/SGP 23 U/L (12-78); Albumin, Blood 3.1 g/dL (3.4-5.0); Albumin/Globulin Ratio 0.8 (0.8-1.8); Alk Phos 99 U/L (50-136); Anion Gap 2 mmol/L (6-16); Aspartate Aminotrans (AST/SGOT 8 U/L (12-37); Bilirubin, Total 0.3 mg/dL (0.1-1.0); Blood Urea Nitrogen 19 mg/dL (8-24); Bun/Creatinine Ratio 30.5 (12.0-20.0); CHOL/HDL RATIO 5.1; CO2, Blood 31 mmol/L (21-32); Calcium, Blood 9.8 mg/dL (8.5-10.1); Chloride, Blood 102 mmol/L (98-108); Cholesterol 168 mg/dL (50-200); Creatinine, Blood 0.62 mg/dL (0.60-1.20); Globulin, Blood 3.9 g/dL (2.2-4.0); Glomerular Filtration Rate 125 (60-); Glucose, Blood 319 mg/dL (70-99); HDL Cholesterol 33 mg/dL (>39); LDL/HDL RATIO 3.2; Low Density Lipoprotein Chol 104 mg/dL (0-110); Potassium, Blood 4.5 mmol/L (3.5-5.5); Sodium, Blood 135 mmol/L (136-145); Triglycerides 155 mg/dL (30-140)
== END | disposition home or self-care (01) ==
LOC: LAB SHORT 10:45
PROVIDERS: Family Medicine
DX: Z51.81 Encounter for therapeutic drug level monitoring (principal); Z79.899 Other long term (current) drug therapy
CPT/HCPCS: 80053; 80061; 85025

== ENCOUNTER → 2022-05-31 | Outpatient (CLI) | payer SELFPAY | END | disposition home or self-care (01) | LOC: LAB 17:41 → LAB SHORT 17:41 | DX: E13.621 Other specified diabetes mellitus with foot ulcer (principal); L97.529 Non-pressure chronic ulcer of other part of left foot with unspecified severity | CPT/HCPCS: 87070; 87075; 87077; 87147; 87186; 87205 ==

== ENCOUNTER 2022-08-14 10:27 | Emergency (ER) | payer SELFPAY ==
[~2022-08-14] VITALS: Ht 185.4 cm; Wt 145.2 kg
[2022-08-14 11:40] LABS: BASOPHILS ABSOLUTE AUTO 0.06 K/mm3 (0.00-0.23); BASOPHILS PERCENT AUTO 0 % (0-2); EOSINOPHILS ABSOLUTE AUTO 0.03 K/mm3 (0.00-0.68); EOSINOPHILS PERCENT AUTO 0 % (0-6); Hematocrit 42.6 % (37.0-53.0); Hemoglobin 14.3 g/dL (13.5-17.5); IMMATURE GRAN PERCENT AUTO 1 % (0-1); LYMPHOCYTES ABSOLUTE AUTO 0.92 K/mm3 (0.84-5.20); LYMPHOCYTES PERCENT AUTO 5 % (21-46); MONOCYTES ABSOLUTE AUTO 0.59 K/mm3 (0.16-1.47); MONOCYTES PERCENT AUTO 3 % (4-13); Mean Corpuscular HGB 26.4 pg (26.0-34.0); Mean Corpuscular HGB Conc 33.6 g/dL (31.5-36.5); Mean Corpuscular Volume 79 fL (80-100); Mean Platelet Volume 9.7 fL (9.1-12.4); NEUTROPHILS ABSOLUTE AUTO 17.65 K/mm3 (1.96-9.15); NEUTROPHILS PERCENT AUTO 91 % (41-73); Platelet Count 361 K/mm3 (150-400); RDW Coefficient Variation 13.3 % (11.7-14.2); RDW Standard Deviation 37.5 fL (35.1-46.3); Red Blood Cell Count 5.41 M/mm3 (4.30-5.90); White Blood Cell Count 19.35 K/mm3 (4.00-11.30)
[2022-08-14 12:00] LABS: Albumin, Blood 3.1 g/dL (3.4-5.0); Albumin/Globulin Ratio 0.6 (0.8-1.8); Bilirubin, Total 0.6 mg/dL (0.1-1.0); Bun/Creatinine Ratio 23.9 (12.0-20.0); Calcium, Blood 9.2 mg/dL (8.5-10.1); Creatinine, Blood 0.63 mg/dL (0.60-1.20); Globulin, Blood 4.8 g/dL (2.2-4.0); Potassium, Blood 4.3 mmol/L (3.5-5.5); Total Protein, Blood 7.9 g/dL (6.4-8.2)
[2022-08-14 12:22] LABS: Influenza A, PCR NEGATIVE (NEGATIVE); Influenza B, PCR NEGATIVE (NEGATIVE); SARS-Cov-2 (COVID-19) PCR, MMC NEGATIVE (NEGATIVE)
[2022-08-14 12:34] LABS: Resp Syncytial Virus, PCR POSITIVE (NEGATIVE)
[2022-08-14] MEDS ORDERED: ONDA4ODT MM (13:14)
== END 2022-08-14 13:38 | disposition home or self-care (01) ==
LOC: ER 10:27
PROVIDERS: Physician Assistant
DX: J06.9 Acute upper respiratory infection, unspecified (principal); B97.4 Respiratory syncytial virus as the cause of diseases classified elsewhere; E11.9 Type 2 diabetes mellitus without complications; Z79.4 Long term (current) use of insulin; Z88.5 Allergy status to narcotic agent; Z20.822 Contact with and (suspected) exposure to COVID-19
CPT/HCPCS: 0241U; 36415; 80053; 83690; 85025; A9270; J1885; J2405; J7030

== ENCOUNTER → 2022-12-14 | Outpatient (CLI) | payer SELFPAY ==
[~2022-12-14] MED LIST changes: +ONDA4ODT MM
== END ==
LOC: LAB 14:37
DX: E13.621 Other specified diabetes mellitus with foot ulcer (principal)
CPT/HCPCS: 87070; 87077; 87147; 87186; 87205

== ENCOUNTER 2023-03-14 15:25 | Emergency (ER) | payer SELFPAY ==
[~2023-03-14] VITALS: Ht 185.4 cm; Wt 149.7 kg
[2023-03-14 16:03] VITALS: BP 151/91
[2023-03-14 16:42] LABS: BASOPHILS ABSOLUTE AUTO 0.07 K/mm3 (0.00-0.23); BASOPHILS PERCENT AUTO 1 % (0-2); EOSINOPHILS ABSOLUTE AUTO 0.19 K/mm3 (0.00-0.68); EOSINOPHILS PERCENT AUTO 2 % (0-6); Hematocrit 38.8 % (37.0-53.0); Hemoglobin 12.6 g/dL (13.5-17.5); IMMATURE GRAN ABSOLUTE AUTO 0.03 K/mm3 (0.00-0.10); IMMATURE GRAN PERCENT AUTO 0 % (0-1); LYMPHOCYTES ABSOLUTE AUTO 2.12 K/mm3 (0.84-5.20); LYMPHOCYTES PERCENT AUTO 16 % (21-46); MONOCYTES ABSOLUTE AUTO 1.01 K/mm3 (0.16-1.47); MONOCYTES PERCENT AUTO 8 % (4-13); Mean Corpuscular HGB 26.7 pg (26.0-34.0); Mean Corpuscular HGB Conc 32.5 g/dL (31.5-36.5); Mean Corpuscular Volume 82 fL (80-100); Mean Platelet Volume 9.8 fL (9.1-12.4); NEUTROPHILS ABSOLUTE AUTO 9.55 K/mm3 (1.96-9.15); NEUTROPHILS PERCENT AUTO 74 % (41-73); Platelet Count 404 K/mm3 (150-400); RDW Coefficient Variation 13.2 % (11.7-14.2); RDW Standard Deviation 39.9 fL (35.1-46.3); Red Blood Cell Count 4.72 M/mm3 (4.30-5.90); White Blood Cell Count 12.97 K/mm3 (4.00-11.30)
[2023-03-14 17:04] LABS: Albumin, Blood 2.6 g/dL (3.4-5.0); Albumin/Globulin Ratio 0.5 (0.8-1.8); Bilirubin, Total 0.3 mg/dL (0.1-1.0); Bun/Creatinine Ratio 23.1 (12.0-20.0); Calcium, Blood 8.8 mg/dL (8.5-10.1); Creatinine, Blood 0.61 mg/dL (0.60-1.20); Globulin, Blood 5.6 g/dL (2.2-4.0); Potassium, Blood 4.1 mmol/L (3.5-5.5); Total Protein, Blood 8.2 g/dL (6.4-8.2)
[2023-03-14] MEDS ORDERED: SULTRIDS PO (23:52)
[2023-03-14] MEDS ORDERED: CEPH500 PO (23:52)
== END 2023-03-15 00:21 | disposition home or self-care (01) ==
LOC: ER 15:25
PROVIDERS: Physician Assistant
DX: L03.314 Cellulitis of groin (principal); Z88.5 Allergy status to narcotic agent; Z79.899 Other long term (current) drug therapy; Z79.4 Long term (current) use of insulin; E11.9 Type 2 diabetes mellitus without complications
CPT/HCPCS: 72193; 74177; 80053; 85025; 99283-25; A9270; Q9967

== ENCOUNTER 2023-05-18 20:46 | Inpatient (IN) | payer SELFPAY ==
[~2023-05-18] VITALS: Ht 185.4 cm; Wt 123.3 kg
[2023-05-18 21:50] LABS: BASOPHILS ABSOLUTE AUTO 0.04 K/mm3 (0.00-0.23); BASOPHILS PERCENT AUTO 0 % (0-2); EOSINOPHILS PERCENT AUTO 0 % (0-6); Hematocrit 36.5 % (37.0-53.0); Hemoglobin 11.9 g/dL (13.5-17.5); IMMATURE GRAN ABSOLUTE AUTO 0.05 K/mm3 (0.00-0.10); IMMATURE GRAN PERCENT AUTO 0 % (0-1); LYMPHOCYTES ABSOLUTE AUTO 0.56 K/mm3 (0.84-5.20); LYMPHOCYTES PERCENT AUTO 4 % (21-46); MONOCYTES ABSOLUTE AUTO 0.63 K/mm3 (0.16-1.47); MONOCYTES PERCENT AUTO 4 % (4-13); Mean Corpuscular HGB 25.9 pg (26.0-34.0); Mean Corpuscular HGB Conc 32.6 g/dL (31.5-36.5); Mean Corpuscular Volume 80 fL (80-100); Mean Platelet Volume 9.9 fL (9.1-12.4); NEUTROPHILS ABSOLUTE AUTO 13.55 K/mm3 (1.96-9.15); NEUTROPHILS PERCENT AUTO 91 % (41-73); Platelet Count 260 K/mm3 (150-400); RDW Coefficient Variation 13.8 % (11.7-14.2); RDW Standard Deviation 39.8 fL (35.1-46.3); Red Blood Cell Count 4.59 M/mm3 (4.30-5.90); White Blood Cell Count 14.83 K/mm3 (4.00-11.30)
[2023-05-18 22:02] LABS: Albumin, Blood 2.3 g/dL (3.4-5.0); Albumin/Globulin Ratio 0.4 (0.8-1.8); Bun/Creatinine Ratio 20.7 (12.0-20.0); Calcium, Blood 8.6 mg/dL (8.5-10.1); Creatinine, Blood 0.97 mg/dL (0.60-1.20); Globulin, Blood 5.5 g/dL (2.2-4.0); Potassium, Blood 3.9 mmol/L (3.5-5.5); Total Protein, Blood 7.8 g/dL (6.4-8.2)
[2023-05-19 00:43] LABS: Influenza A, PCR NEGATIVE (NEGATIVE); Influenza B, PCR NEGATIVE (NEGATIVE); Resp Syncytial Virus, PCR NEGATIVE (NEGATIVE)
[2023-05-19 03:22] LABS: SARS-Cov-2 (COVID-19) PCR, MMC POSITIVE (NEGATIVE)
[2023-05-19] MEDS ORDERED: METFORMIN HCL500 M3 PO (03:45)
[2023-05-19 04:45] VITALS: BP 124/70
--- NOTE | 2023-05-19 04:59 | NUR ---
ADMIT NOTE 42 YR OLD MALE ADMITTED TO FLOOR FROM THE ED WITH DX OF LEFT FOOT DIABETIC FOOT ULCER. ALERT AND ORIENTED. OBESE. POSITIVE COVID - ISOLATION PRECAUTIONS INITIATED. CALL LIGHT IN REACH.
[2023-05-19 05:55] LABS: BASOPHILS ABSOLUTE AUTO 0.03 K/mm3 (0.00-0.23); BASOPHILS PERCENT AUTO 0 % (0-2); EOSINOPHILS PERCENT AUTO 0 % (0-6); Hematocrit 30.4 % (37.0-53.0); Hemoglobin 9.9 g/dL (13.5-17.5); IMMATURE GRAN ABSOLUTE AUTO 0.08 K/mm3 (0.00-0.10); IMMATURE GRAN PERCENT AUTO 1 % (0-1); LYMPHOCYTES ABSOLUTE AUTO 1.31 K/mm3 (0.84-5.20); LYMPHOCYTES PERCENT AUTO 8 % (21-46); MONOCYTES ABSOLUTE AUTO 1.56 K/mm3 (0.16-1.47); MONOCYTES PERCENT AUTO 9 % (4-13); Mean Corpuscular HGB 25.8 pg (26.0-34.0); Mean Corpuscular HGB Conc 32.6 g/dL (31.5-36.5); Mean Corpuscular Volume 79 fL (80-100); Mean Platelet Volume 10.2 fL (9.1-12.4); NEUTROPHILS ABSOLUTE AUTO 14.01 K/mm3 (1.96-9.15); NEUTROPHILS PERCENT AUTO 82 % (41-73); Platelet Count 221 K/mm3 (150-400); RDW Coefficient Variation 13.7 % (11.7-14.2); RDW Standard Deviation 39.8 fL (35.1-46.3); Red Blood Cell Count 3.83 M/mm3 (4.30-5.90); White Blood Cell Count 16.99 K/mm3 (4.00-11.30)
[2023-05-19 06:22] LABS: Albumin, Blood 1.9 g/dL (3.4-5.0); Albumin/Globulin Ratio 0.4 (0.8-1.8); Bilirubin, Total 0.9 mg/dL (0.1-1.0); Bun/Creatinine Ratio 19.8 (12.0-20.0); Calcium, Blood 7.9 mg/dL (8.5-10.1); Creatinine, Blood 1.21 mg/dL (0.60-1.20); Globulin, Blood 5.1 g/dL (2.2-4.0); Potassium, Blood 3.8 mmol/L (3.5-5.5)
--- NOTE | 2023-05-19 07:09 | NUR ---
Rn summary: Patient is alert and oriented. Pt c/o headache which the Toradol in ed "took the edge off. Patient has neuropathy van feet. He has no pain in his rt foot. Rt foot has large open wound that he puts a simple drgs on at home. RT Foot is swollen, pulse present with dopler. L foot pulse is palpable and strong. Pt states he ambulates without difficulty. Instructed he needs to have foot covered if up ambulating in room.. Pt does have some decreased breathsounds rt lower base. Occ dry cough. RA. Infection control nurse wants covid antigen rechecked. Pt is in covid kisolation at this time. Pt is NPO for possible procedure. Message left with Dr. schafer office for consult. Pt given mouth swabs and moisture mouth lube. Call light in reach.
[2023-05-19 07:41] VITALS: BP 110/62
[2023-05-19 21:25] VITALS: BP 121/80
--- NOTE | 2023-05-20 04:59 | NUR ---
END OF SHIFT SUMMARY PT A&O x4, VSS, AFEBRILE. PT PLEASANT AND COOPERATIVE WITH CARE PROVIDED. PT C/O MISTRY, PRN TRAMADOL ADMINISTERED PER eMAR. PT TOLERATED IV ANTIBIOTIC TREATMENT. PT TOOK A SHOWER, NEW PINK MEPILEX DRESSING WAS PLACED TO THE ULCER ON THE BOTTOM OF L FOOT. PT ON RA, RESP EVEN AND UNLABORED, DRY COUGH IS PRESENT. LUNG SOUNDS CLEAR, DECREASED AT THE BASES. NEW IV LOCATED ON L FA, RUNNING NS AT 100 mL/HR. PT ABLE TO MAKE NEEDS KNOWN, CALL LIGHT WITHIN REACH, WCTM.
[2023-05-20 05:36] VITALS: BP 125/68
[2023-05-20 07:23] VITALS: BP 128/69
[2023-05-20 08:02] LABS: BASOPHILS ABSOLUTE AUTO 0.02 K/mm3 (0.00-0.23); BASOPHILS PERCENT AUTO 0 % (0-2); EOSINOPHILS PERCENT AUTO 0 % (0-6); Hematocrit 28.8 % (37.0-53.0); Hemoglobin 9.8 g/dL (13.5-17.5); IMMATURE GRAN ABSOLUTE AUTO 0.05 K/mm3 (0.00-0.10); IMMATURE GRAN PERCENT AUTO 0 % (0-1); LYMPHOCYTES PERCENT AUTO 8 % (21-46); MONOCYTES ABSOLUTE AUTO 0.72 K/mm3 (0.16-1.47); MONOCYTES PERCENT AUTO 6 % (4-13); Mean Corpuscular HGB 26.5 pg (26.0-34.0); Mean Corpuscular Volume 78 fL (80-100); Mean Platelet Volume 10.6 fL (9.1-12.4); NEUTROPHILS ABSOLUTE AUTO 10.29 K/mm3 (1.96-9.15); NEUTROPHILS PERCENT AUTO 85 % (41-73); Platelet Count 221 K/mm3 (150-400); RDW Coefficient Variation 14.2 % (11.7-14.2); RDW Standard Deviation 40.4 fL (35.1-46.3); White Blood Cell Count 12.08 K/mm3 (4.00-11.30)
[2023-05-20 08:24] LABS: Albumin, Blood 1.9 g/dL (3.4-5.0); Albumin/Globulin Ratio 0.4 (0.8-1.8); Bun/Creatinine Ratio 29.1 (12.0-20.0); Creatinine, Blood 1.17 mg/dL (0.60-1.20); Potassium, Blood 3.8 mmol/L (3.5-5.5); Total Protein, Blood 6.9 g/dL (6.4-8.2)
[2023-05-20 08:36] LABS: IMMATURE RETIC FRACTION 6.5 % (2.3-16.0); RETIC HGB EQUIVALENT 23.7 pg (28.20-36.60); RETICULOCYTE COUNT PERCENT 0.49 % (0.50-2.50)
[2023-05-20 14:58] VITALS: BP 139/83
--- NOTE | 2023-05-20 17:56 | NUR ---
PT A&OX4 AND COOPERATIVE. NO ACUTE CHANGES. LIGHT TEMPERATURE IN MORNING BUT TAKEN ORALY SHOWED TEMP TO BE 99.3. PT REMAINED AFEBRILE FOR THE REMAINDER OF SHIFT. AT BEDSIDE T/O DAY. NO C/O PAIN. PODIATRY CALLED AND DR. BRADLEY STATED HE WOULD BE IN TO CONSULT ON PT TODAY. HAVE NOT SEEN YET. BED IN LOWEST POSITION AND CALL LIGHT IN REACH.
[2023-05-20 20:05] VITALS: BP 127/81
[2023-05-21 02:44] VITALS: BP 140/85
[2023-05-21 05:25] LABS: BASOPHILS ABSOLUTE AUTO 0.03 K/mm3 (0.00-0.23); BASOPHILS PERCENT AUTO 0 % (0-2); EOSINOPHILS ABSOLUTE AUTO 0.01 K/mm3 (0.00-0.68); EOSINOPHILS PERCENT AUTO 0 % (0-6); Hematocrit 29.5 % (37.0-53.0); Hemoglobin 9.7 g/dL (13.5-17.5); IMMATURE GRAN ABSOLUTE AUTO 0.18 K/mm3 (0.00-0.10); IMMATURE GRAN PERCENT AUTO 1 % (0-1); LYMPHOCYTES ABSOLUTE AUTO 1.39 K/mm3 (0.84-5.20); LYMPHOCYTES PERCENT AUTO 8 % (21-46); MONOCYTES ABSOLUTE AUTO 1.43 K/mm3 (0.16-1.47); MONOCYTES PERCENT AUTO 8 % (4-13); Mean Corpuscular HGB 26.1 pg (26.0-34.0); Mean Corpuscular HGB Conc 32.9 g/dL (31.5-36.5); Mean Corpuscular Volume 79 fL (80-100); Mean Platelet Volume 10.8 fL (9.1-12.4); NEUTROPHILS ABSOLUTE AUTO 15.47 K/mm3 (1.96-9.15); NEUTROPHILS PERCENT AUTO 84 % (41-73); Platelet Count 266 K/mm3 (150-400); RDW Coefficient Variation 14.6 % (11.7-14.2); RDW Standard Deviation 41.6 fL (35.1-46.3); Red Blood Cell Count 3.72 M/mm3 (4.30-5.90); White Blood Cell Count 18.51 K/mm3 (4.00-11.30)
[2023-05-21 05:54] LABS: Albumin, Blood 1.9 g/dL (3.4-5.0); Albumin/Globulin Ratio 0.4 (0.8-1.8); Bilirubin, Total 0.8 mg/dL (0.1-1.0); Bun/Creatinine Ratio 39.4 (12.0-20.0); Calcium, Blood 8.2 mg/dL (8.5-10.1); Creatinine, Blood 1.04 mg/dL (0.60-1.20); Globulin, Blood 5.3 g/dL (2.2-4.0); Total Protein, Blood 7.2 g/dL (6.4-8.2)
--- NOTE | 2023-05-21 06:26 | NUR ---
Shift Summary [employer] Blower saw pt and took wound culture and dressed foot. Pt able to ambulate on affected foot well, SBA. Lung sounds are clear with occasional coughing. Afibrile t/o shift. Pt c/o insomnia for the past 6 days saying he was hardly able to sleep. Called hospitalist who ordered PRN Benadryl 25mg which pt states did not help. He finds it difficult to sleep on the inflating bed. No c/o nausea or pain. Heavy PO fluid intake, drinking over 2L of water through the night. AOx4, pleasant and cooperative.
[2023-05-21 08:16] VITALS: BP 130/69
[2023-05-21 17:34] VITALS: BP 119/70
--- NOTE | 2023-05-21 17:53 | NUR ---
SHIFT SUMMARY PT HAS DONE WELL T/O SHIFT. L FOOT W/PUSHPA WRAP AND GAUZE C/D/I. PT MAXIMUS PAIN IN FOOT. PT HAS REMAINED ON RA OTHER THAN WHEN SLEEPING, PT PLACED ON 2L O2 FOR "WAKING MYSELF UP GASPING" PT STATES HE IS SUPPOSED TO WEAR CPAP AT HOME BUT IS CLAUSTRPHOBIC. PT TOLERATING PO W/NO N/V. INDEPENDENT IN ROOM. IV ABX PER EMAR.
[2023-05-21 19:32] VITALS: BP 134/73
[2023-05-22 03:29] VITALS: BP 139/77
--- NOTE | 2023-05-22 03:36 | NUR ---
SUMMARY- PT A/O X4, USES CALL LIGHT. INDEPENDANT TO BATHROOM. TOLERATING FOOD AND FLUID/ VOIDING WITHOUT DIFFICULTY. FOOT ULCER ABD CHANGED IT WAS SATURATED. PUSHPA RE-WRAPPEED PT REQUEST FOR DISCOMFORT. IV RESTARTED LF PHLEBITIS AFTER LESS THAN 18 HRS OF USE. MAY NEED POWERGLIDE. PT SLEPT LITTLE THROUGH THE NIGHT. COVID POS/ASYMPTOMATIC. PT HAS CHRONIC DRY COUGH HE STATES PRE EXHISTANT BEFORE COVID. WILL REPORT TO DAY RN
[2023-05-22 07:35] VITALS: BP 134/71
--- NOTE | 2023-05-22 07:40 | NUR ---
ASSUMED CARE: PT ALERT AND ORIENTED, ON RA. STARTING TO FEEL STIR CRAZY BEING ISOLATED FOR COVID. WANTS TO ASK DR IF IV FLUIDS CAN BE DISCONTINUED SO HE CAN AMBULATE IN ROOM. ALSO ASKING TO BE RETESTED SO HE CAN AMBULATE IN HALLS. DIVISION TOLL WIRE CHIEF AT BEDSIDE. NO FURTHER NEEDS OR CONCERNS AT THIS TIME.
[2023-05-22 08:27] LABS: Hemoglobin 8.5 g/dL (13.5-17.5); Mean Corpuscular HGB 25.7 pg (26.0-34.0); Mean Corpuscular HGB Conc 32.7 g/dL (31.5-36.5); Mean Corpuscular Volume 79 fL (80-100); Mean Platelet Volume 10.4 fL (9.1-12.4); Platelet Count 304 K/mm3 (150-400); RDW Coefficient Variation 14.7 % (11.7-14.2); RDW Standard Deviation 42.5 fL (35.1-46.3); Red Blood Cell Count 3.31 M/mm3 (4.30-5.90); White Blood Cell Count 24.01 K/mm3 (4.00-11.30)
[2023-05-22 08:45] LABS: Bun/Creatinine Ratio 30.4 (12.0-20.0); Calcium, Blood 8.2 mg/dL (8.5-10.1); Creatinine, Blood 0.92 mg/dL (0.60-1.20); Potassium, Blood 3.7 mmol/L (3.5-5.5)
[2023-05-22 08:49] LABS: BASOPHILS ABSOLUTE MAN 0.24 K/mm3 (0.00-0.23); BASOPHILS PERCENT MAN 1 % (0-2); EOSINOPHILS PERCENT MAN 0 % (0-6); LYMPHOCYTES % ATYPICAL MANUAL 1 % (0-0); LYMPHOCYTES ABSOLUTE MAN 1.68 K/mm3 (0.84-5.20); LYMPHOCYTES PERCENT MAN 6 % (21-46); MONOCYTES ABSOLUTE MAN 1.68 K/mm3 (0.16-1.47); MONOCYTES PERCENT MAN 7 % (4-13); SEG NEUTROPHILS PERCENT MAN 85 % (41-73); TOTAL CELLS COUNTED 100
--- NOTE | 2023-05-22 12:00 | NUR ---
RESIDENTS AND DR MATOS CAME TO BEDSIDE TO EVALUATE ZAYNAB AREA FOR INFECTION SITES GIVEN HX OF FORNEIER'S GANGRENE. NO NEW INFECTION SITES NOTED. PT ASKED IF HE CAN BE REMOVED FROM ISOLATION. MADE PT AWARE THAT PT CAN POSSIBLY BE RETESTED TOMORROW.
--- NOTE | 2023-05-22 17:21 | NUR ---
SHIFT SUMMARY: PLAN IS FOR PT TO HAVE I AND D WITH BONE BIOPSY DONE TOMORROW. PT REQUESTS FOR DRESSING CHANGE TO BE DONE AFTER SHOWER BUT SENT HIS TO GET A BATH MAT BECAUSE HE DOES NOT WANT TO PUT HIS BARE FOOT ON THE FLOOR. MEDICATED X1 FOR ANXIETY. STATED RELIEF OF SYMPTOMS. AT BEDSIDE MOST OF SHIFT. NO FURTHER NEEDS AT THIS TIME.
[2023-05-22 19:40] VITALS: BP 151/80
--- NOTE | 2023-05-23 03:46 | NUR ---
SUMMARY- PT A/O X4. INDEPENDANT TO BATHROOM. TOLERATING FOOD AND FLUIDS. DENIES PAIN, PT HAS LE NEUROPATHY. DRESSING TO LLE CDI- PUSHPA SECURING DRESSING. SWELLING NOTED TO LLE. PT NPO SINCE MIDNIGHT. PLAN FOR I/D WITH BONE BIOPSY TODAY WITH DR JOYNER. WILL REPORT TO DAY RN.
[2023-05-23 04:55] LABS: Hematocrit 26.7 % (37.0-53.0); Hemoglobin 8.7 g/dL (13.5-17.5); Mean Corpuscular HGB Conc 32.6 g/dL (31.5-36.5); Mean Corpuscular Volume 80 fL (80-100); Platelet Count 356 K/mm3 (150-400); RDW Standard Deviation 43.8 fL (35.1-46.3); Red Blood Cell Count 3.35 M/mm3 (4.30-5.90); White Blood Cell Count 24.55 K/mm3 (4.00-11.30)
[2023-05-23 05:03] VITALS: BP 142/74
[2023-05-23 05:23] LABS: Albumin, Blood 1.7 g/dL (3.4-5.0); Albumin/Globulin Ratio 0.3 (0.8-1.8); Bilirubin, Total 0.9 mg/dL (0.1-1.0); Bun/Creatinine Ratio 24.5 (12.0-20.0); Creatinine, Blood 1.02 mg/dL (0.60-1.20); Globulin, Blood 5.2 g/dL (2.2-4.0); Potassium, Blood 3.8 mmol/L (3.5-5.5); Total Protein, Blood 6.9 g/dL (6.4-8.2)
[2023-05-23 05:50] LABS: BASOPHILS PERCENT MAN 0 % (0-2); EOSINOPHILS PERCENT MAN 0 % (0-6); LYMPHOCYTES % ATYPICAL MANUAL 3 % (0-0); LYMPHOCYTES ABSOLUTE MAN 2.45 K/mm3 (0.84-5.20); LYMPHOCYTES PERCENT MAN 7 % (21-46); MONOCYTES PERCENT MAN 9 % (4-13); NEUTROPHILS ABSOLUTE MAN 19.88 K/mm3 (1.96-9.15); SEG NEUTROPHILS PERCENT MAN 81 % (41-73); TOTAL CELLS COUNTED 100
[2023-05-23 07:29] VITALS: BP 136/78
[2023-05-23 16:01] VITALS: BP 151/74
[2023-05-23 19:52] VITALS: BP 140/74
[2023-05-24 02:06] VITALS: BP 147/73
--- NOTE | 2023-05-24 04:39 | NUR ---
SUMMARY- PT A/O X4, INDEPENDANT IN ROOM. TOLERATING FOOD AND FLUIDS. HAD A BM TODAY STATES IT WAS LIKE DEER PELLETS, WILL MAKE REQ FOR STOOL SOFTNER OR SENOKOT.S/P BONE BX AT BEDSIDE 05/[address] BRADLEY- DRESSING INTACT WITH PUSHPA- PT'S L FOOT REMAINS SWOLLEN IT HAS, COLOR AND MOVEMENT INTACT, AND HX OF NEUROPATHY, SO PT DENIES PAIN BUT VOICED IT FEELS MORE UNCOMFORTABLE WHEN HE WALKS ON IT SINCE THE PROCEDURE, DECLINED PAIN MED THOUGH. PT HAD VERY LITTLE SLEEP LAST NIGHT, WAS UP ON HIS PHONE UNTIL ABOUT 0330, STATES THIS IS HIS NORM TO STAY UP "I AM A CARDROOM HAND". WILL REPORT TO DAY DEIRDRE
[2023-05-24 06:13] LABS: Hematocrit 26.7 % (37.0-53.0); Hemoglobin 8.6 g/dL (13.5-17.5); Mean Corpuscular HGB 25.8 pg (26.0-34.0); Mean Corpuscular HGB Conc 32.2 g/dL (31.5-36.5); Mean Corpuscular Volume 80 fL (80-100); Mean Platelet Volume 10.8 fL (9.1-12.4); Platelet Count 255 K/mm3 (150-400); RDW Coefficient Variation 15.1 % (11.7-14.2); RDW Standard Deviation 44.2 fL (35.1-46.3); Red Blood Cell Count 3.33 M/mm3 (4.30-5.90); White Blood Cell Count 24.55 K/mm3 (4.00-11.30)
[2023-05-24 08:00] VITALS: BP 143/70
[2023-05-24 14:57] VITALS: BP 155/77
--- NOTE | 2023-05-24 18:00 | NUR ---
SHIFT SUMMARY PT A&OX4. NO ACUTE CHANGES THIS SHIFT. PT DENIES FEELING SOB. PT C/O OF SOME SHOULDER PAIN BUT DECLINED PAIN MEDICATIONS. ICE PACK PROVIDED. DRESSING ON LEFT FOOT CHANGED PER ORDERS. DRESSING SATURATED WITH TANISH/WHITE FLUIDS. NO FOUL ODOR NOTED. PT DOES NOT HAVE SENSATION IN FOOT SO DID NOT C/O PAIN DURING DRESSING CHANGE OR PACKING. CONTINUING ABX TREATMENT. PT FRUSTRATED IN AFTERNOON D/T NOT UNDERSTANDING TREATMENTS PLANS OR WHY HE HAS BEEN IN THE HOSPITAL FOR SO MANY DAYS. DR MENSAH CAME TO SPEAK WITH PT AND WAS ABLE TO ANSWER MOST OF THEIR QUESTIONS. BED IN LOWEST POSITION AND CALL LIGHT IN REACH.
[2023-05-24 20:28] VITALS: BP 151/84
[2023-05-24 22:41] VITALS: BP 152/77
--- NOTE | 2023-05-25 04:15 | NUR ---
PT HAD C/O OF CP DISCOMFORT. HOSPITALIST NOTIFIED AND EKG PERFORMED AND FOUND NSR WIH LOW QRS VOLTAGE COMPARABLE TO EKG 05/22/23.TROPONIN DRAW OF 6.
[2023-05-25 04:30] VITALS: BP 146/77
[2023-05-25 04:49] LABS: Hematocrit 25.5 % (37.0-53.0); Mean Corpuscular HGB 25.4 pg (26.0-34.0); Mean Corpuscular HGB Conc 31.4 g/dL (31.5-36.5); Mean Corpuscular Volume 81 fL (80-100); Mean Platelet Volume 9.7 fL (9.1-12.4); Platelet Count 452 K/mm3 (150-400); RDW Standard Deviation 44.2 fL (35.1-46.3); Red Blood Cell Count 3.15 M/mm3 (4.30-5.90)
[2023-05-25 05:36] LABS: Albumin, Blood 1.6 g/dL (3.4-5.0); Albumin/Globulin Ratio 0.3 (0.8-1.8); Bilirubin, Total 0.5 mg/dL (0.1-1.0); Bun/Creatinine Ratio 43.6 (12.0-20.0); Creatinine, Blood 0.39 mg/dL (0.60-1.20); Globulin, Blood 5.3 g/dL (2.2-4.0); Potassium, Blood 4.1 mmol/L (3.5-5.5); Total Protein, Blood 6.9 g/dL (6.4-8.2)
--- NOTE | 2023-05-25 06:20 | NUR ---
SHIFT SUMMARY NOC PT A/O X 4. ANXIOUS BUT COOPERATIVE WITH CARE. PT IN ENHANCED ISOLATION PRECAUTIONS FOR C-19. PT HAD C/O OF CP THAT RADIATED TO BACK, EKG PERFORMED AND FOUND NORMAL SINUS RHYTHM WITH LOW VOLTAGE QRS WHICH WAS COMPARABLE WITH EKG PERFORMED 05/22/23 WHICH ALSO SHOWED LOW VOLTAGE QRS. PT TROPONIN CAME BACK 6. PT HS CBG 270 HUMALOG CNI, BUT 18 UNITS SCHEDULED LONG ACTING INSULIN GIVEN. PT CP SUBSIDED AFTER PT RECEIVED PRN BENADRYL FOR INSOMNIA. PT FIRST BLOOD CULTURE CAME BACK GRAM POSITIVE WITH COCCI IN CLUSTERS, AWAITING SECOND BLOOD CULTURE. PT SEEMS ANXIOUS ABOUT SOURCE OF INFECTION. PT IS CURRENTLY RESTING WITH BED IN LOWEST POSITION, AND CALL LIGHT WITHIN REACH.
[2023-05-25 08:12] VITALS: BP 144/81
[2023-05-25 15:58] VITALS: BP 153/73
--- NOTE | 2023-05-25 19:20 | NUR ---
SHIFT SUMMARY PT A&OX4. INDEPENDENT IN ROOM. DRESSING ON LEFT FOOT CHANGED TWICE TODAY. DRESSING WAS SATURATED WITH TANISH/WHITE LIQUID. DR BRADLEY WAS IN TO TALK WITH PT THIS AFTERNOON AND TOLD PT THAT A BKA WAS NEEDED. PT IS TO BE NPO AT MIDNIGHT. DR MAY WAS CONSULTED. FAMILY AT BEDSIDE. WBC ELEVATED BUT TRENDING DOWN. CONTINUING ABX. BED IN LOWEST POSITION AND CALL LIGHT IN REACH.
[2023-05-25 20:15] VITALS: BP 144/80
[2023-05-26] VITALS (16 sets, daily range): BP systolic 141–168; BP diastolic 64–98
--- NOTE | 2023-05-26 06:30 | NUR ---
SHIFT SUMMARY PATIENT WITH BG 339 AT BEGINNING OF SHIFT, PATIENT STATES HE HAD JUST EATEN PRIOR TO BG, RECHECK 1.[address] BRANHAM NOTIFIED, NO ORDERS GIVEN. SECONDARY DRESSING CHANGED TO LEFT FOOT AT 2130 SEROSANGUENOUS TO DRESSING PATIENT WITH NO OTHER ACUTE EVENTS DURING SHIFT.BED IN LOW POSITION. CALL LIGHT IN REACH. WILL CONTINUE TO MONITOR.
--- NOTE | 2023-05-26 09:00 | NUR ---
pt laying in bed, in room, he is a/ox4, cooperative with care, follows commands well, when asked how he is doing he states how would you be doing if you were in my place, he is scheduled for surgery today, is npo, lungs are clear t/o, on r/a, no cough noted, hrr, swelling to left foot, it is wrapped in henry dressing, reports voids ok, skin c/w/d except left foot, maew, ambulates to the bathroom, iv to [facility], site is clear and patent, call light in reach.
--- NOTE | 2023-05-26 15:00 | NUR ---
pt left for surgery via gurney.
--- NOTE | 2023-05-26 18:05 | NUR ---
pt returned from OR via bed, awake, alert, no s/s of distress, vs stable, call light in reach.
[2023-05-27 04:28] VITALS: BP 145/70
--- NOTE | 2023-05-27 06:46 | NUR ---
SHIFT SUMMARY PATIENT WITH PAIN THROUGH THE NIGHT, PAIN REDUCED WITH MEDICATIONS PER EMAR AND ICE. PATIENT WITH 1 L O2 FIRST FEW HOURS OF SHIFT BUT NOW SATTING 95% ON ROOM AIR. BED IN LOW POSITION.CALL LIGHT IN REACH. WILL CONTINUE TO MONITOR.
[2023-05-27 07:29] VITALS: BP 151/76
[2023-05-27 08:57] LABS: BASOPHILS ABSOLUTE AUTO 0.05 K/mm3 (0.00-0.23); BASOPHILS PERCENT AUTO 0 % (0-2); EOSINOPHILS ABSOLUTE AUTO 0.19 K/mm3 (0.00-0.68); EOSINOPHILS PERCENT AUTO 1 % (0-6); Hematocrit 28.4 % (37.0-53.0); Hemoglobin 8.6 g/dL (13.5-17.5); IMMATURE GRAN ABSOLUTE AUTO 0.19 K/mm3 (0.00-0.10); IMMATURE GRAN PERCENT AUTO 1 % (0-1); LYMPHOCYTES PERCENT AUTO 12 % (21-46); MONOCYTES ABSOLUTE AUTO 1.08 K/mm3 (0.16-1.47); MONOCYTES PERCENT AUTO 8 % (4-13); Mean Corpuscular HGB 25.4 pg (26.0-34.0); Mean Corpuscular HGB Conc 30.3 g/dL (31.5-36.5); Mean Corpuscular Volume 84 fL (80-100); NEUTROPHILS ABSOLUTE AUTO 10.21 K/mm3 (1.96-9.15); NEUTROPHILS PERCENT AUTO 77 % (41-73); Platelet Count 557 K/mm3 (150-400); RDW Standard Deviation 45.5 fL (35.1-46.3); Red Blood Cell Count 3.39 M/mm3 (4.30-5.90); White Blood Cell Count 13.32 K/mm3 (4.00-11.30)
--- NOTE | 2023-05-27 09:00 | NUR ---
pt laying in bed awake a/ox4, is in better spirits than yesterday, states he had a good night, lungs clear on r/a, no cough noted, hrr, had a left bka yesterday, dressing intact, no drainage noted, hrr, iv to lfa site is clear and patent, btx4, abd flat soft nontender, voids without diff, skin c/w/d, maew, hannah, call light in reach.
[2023-05-27 09:22] LABS: Albumin, Blood 1.7 g/dL (3.4-5.0); Albumin/Globulin Ratio 0.3 (0.8-1.8); Bilirubin, Total 0.4 mg/dL (0.1-1.0); Bun/Creatinine Ratio 18.4 (12.0-20.0); Creatinine, Blood 0.81 mg/dL (0.60-1.20); Potassium, Blood 4.5 mmol/L (3.5-5.5); Total Protein, Blood 7.7 g/dL (6.4-8.2)
[2023-05-27 15:29] VITALS: BP 111/67
--- NOTE | 2023-05-27 18:02 | NUR ---
pt doing well, he was medicated twice for pain today, worked with PT, dressing intact, no further changes, call light in reach.
[2023-05-28 03:49] VITALS: BP 156/78
[2023-05-28 05:01] LABS: Hematocrit 28.5 % (37.0-53.0); Hemoglobin 8.6 g/dL (13.5-17.5); Mean Corpuscular HGB 25.4 pg (26.0-34.0); Mean Corpuscular HGB Conc 30.2 g/dL (31.5-36.5); Mean Corpuscular Volume 84 fL (80-100); Mean Platelet Volume 9.1 fL (9.1-12.4); Platelet Count 573 K/mm3 (150-400); RDW Coefficient Variation 14.9 % (11.7-14.2); RDW Standard Deviation 45.9 fL (35.1-46.3); Red Blood Cell Count 3.39 M/mm3 (4.30-5.90)
--- NOTE | 2023-05-28 05:26 | NUR ---
SHIFT SUMMARY NOC PT A/O X 4. PLEASANT AND COOPERATIVE WITH CARE. NO ACUTE CHANGES TO REPORT. PT ON ENHANCED ISOLATION PRECAUTIONS FOR POSITIVE C-19 TEST LAST DONE ON TUESDAY. PT IS POST OP NOW DAY 2 FOR L BKA, SURGICAL DRESSING IN PLACE C/D/I, WITH STOCKING OVER STUMP. PT HAD SEVERE C/BRO PAIN IN POST OP LLE AND MEDICATED PER EMAR WITH DESIRED EFFECT. PT HAS BEEN SLIGHTLY ANXIOUS AND MEDICATED PER EMAR AT BEDTIME. PT IS CURRENTLY RESTING WITH BED IN LOWEST POSITION, AND CALL LIGHT WITHIN REACH.
[2023-05-28 06:02] LABS: Bun/Creatinine Ratio 22.9 (12.0-20.0); Calcium, Blood 8.1 mg/dL (8.5-10.1); Creatinine, Blood 0.88 mg/dL (0.60-1.20); Potassium, Blood 4.5 mmol/L (3.5-5.5)
[2023-05-28 07:07] VITALS: BP 124/59
[2023-05-28 15:01] VITALS: BP 124/58
--- NOTE | 2023-05-28 17:32 | NUR ---
SHIFT SUMMARY 1430 ASSUMED CARE OF PT. RESTING QUIETLY IN BED WITH AT BS. PER REPORT, PT WITH LBKA; SX [address] MAY IN TO CK ON PT AND CHANGE DRSG. FURTHER DRSG CHANGES PRN IF DRAINAGE. PT CLEARED BY ORTHO FOR D/C HOME. NONWT BEARING. ADA DIET. MORBIDLY OBESE. IV ABX GIVEN PER EMAR. PT DENIED FURTHER NEEDS AT THIS TIME. CALL LT IN REACH.
[2023-05-28 19:45] VITALS: BP 174/82
[2023-05-29 03:08] VITALS: BP 156/79
[2023-05-29 05:18] LABS: BASOPHILS ABSOLUTE AUTO 0.04 K/mm3 (0.00-0.23); BASOPHILS PERCENT AUTO 0 % (0-2); EOSINOPHILS ABSOLUTE AUTO 0.15 K/mm3 (0.00-0.68); EOSINOPHILS PERCENT AUTO 2 % (0-6); Hematocrit 28.6 % (37.0-53.0); Hemoglobin 8.7 g/dL (13.5-17.5); IMMATURE GRAN ABSOLUTE AUTO 0.11 K/mm3 (0.00-0.10); IMMATURE GRAN PERCENT AUTO 1 % (0-1); LYMPHOCYTES ABSOLUTE AUTO 1.62 K/mm3 (0.84-5.20); LYMPHOCYTES PERCENT AUTO 16 % (21-46); MONOCYTES ABSOLUTE AUTO 0.83 K/mm3 (0.16-1.47); MONOCYTES PERCENT AUTO 8 % (4-13); Mean Corpuscular HGB 25.4 pg (26.0-34.0); Mean Corpuscular HGB Conc 30.4 g/dL (31.5-36.5); Mean Corpuscular Volume 84 fL (80-100); Mean Platelet Volume 9.1 fL (9.1-12.4); NEUTROPHILS PERCENT AUTO 72 % (41-73); Platelet Count 576 K/mm3 (150-400); RDW Coefficient Variation 14.5 % (11.7-14.2); Red Blood Cell Count 3.42 M/mm3 (4.30-5.90); White Blood Cell Count 9.95 K/mm3 (4.00-11.30)
--- NOTE | 2023-05-29 05:28 | NUR ---
SHIFT SUMMARY NOC PT A/O X 4. PLEASANT AND COOPERATIVE WITH CARE. NO ACUTE CHANGES TO REPORT. PT L BKS DRESSING CHANGED BY SURGEON YESTERDAY AND C/D/I. PT HAS NOT REQUESTED ANY PAIN RX SO FAR AND REPORTS PAIN IS UNDER CONTROL CURRENTLY. PT STATED MOTIVATION TO BEGIN PT/OT REHAB SOON POSSIBLE TO GET AMBULATORY AGAIN. PT CBG WAS 264 AND REQUIRED 1 UNIT COVERAGE OF HUMALOG. PT IN ROOM. PT IS CURRENTLY RESTING WITH BED IN LOWEST POSITION, AND CALL LIGHT WITHIN REACH.
[2023-05-29 05:55] LABS: Albumin, Blood 1.7 g/dL (3.4-5.0); Albumin/Globulin Ratio 0.3 (0.8-1.8); Bilirubin, Total 0.2 mg/dL (0.1-1.0); Bun/Creatinine Ratio 24.6 (12.0-20.0); Calcium, Blood 8.1 mg/dL (8.5-10.1); Creatinine, Blood 0.77 mg/dL (0.60-1.20); Globulin, Blood 5.3 g/dL (2.2-4.0); Potassium, Blood 4.6 mmol/L (3.5-5.5)
[2023-05-29 07:57] VITALS: BP 117/62
[2023-05-29 15:51] VITALS: BP 138/64
--- NOTE | 2023-05-29 16:10 | NUR ---
THE PATIENT IS A&O X4, FOLLOWS COMMANDS AND IS PLASENT TO VISIT WITH, THE PATIENT HAS A LEFT BKA, BUT STILL MOVES HIMSELF WITH A WALKER TO THE BATHROOM. THE PATIENT'S CAME BACK WITH GRAM POSITIVE COCCI IN CLUSTERS AND HAS BEEN GIVEN VANCO FOR IT. THE PATIENT IS RESTING IN HIS BED AT THIS TIME. REPORT HAS BEEN GIVEN TO DEIRDRE FUENTES FOR THE REST OF THE SHIFT.
[2023-05-29 19:40] VITALS: BP 167/81
[2023-05-30 03:07] VITALS: BP 147/76
[2023-05-30 04:33] LABS: BASOPHILS ABSOLUTE AUTO 0.05 K/mm3 (0.00-0.23); BASOPHILS PERCENT AUTO 1 % (0-2); EOSINOPHILS ABSOLUTE AUTO 0.15 K/mm3 (0.00-0.68); EOSINOPHILS PERCENT AUTO 2 % (0-6); Hematocrit 32.3 % (37.0-53.0); IMMATURE GRAN ABSOLUTE AUTO 0.08 K/mm3 (0.00-0.10); IMMATURE GRAN PERCENT AUTO 1 % (0-1); LYMPHOCYTES PERCENT AUTO 21 % (21-46); MONOCYTES ABSOLUTE AUTO 0.62 K/mm3 (0.16-1.47); MONOCYTES PERCENT AUTO 7 % (4-13); Mean Corpuscular HGB 25.8 pg (26.0-34.0); Mean Corpuscular Volume 83 fL (80-100); Mean Platelet Volume 8.5 fL (9.1-12.4); NEUTROPHILS ABSOLUTE AUTO 6.46 K/mm3 (1.96-9.15); NEUTROPHILS PERCENT AUTO 70 % (41-73); Platelet Count 609 K/mm3 (150-400); RDW Coefficient Variation 14.5 % (11.7-14.2); RDW Standard Deviation 43.3 fL (35.1-46.3); Red Blood Cell Count 3.88 M/mm3 (4.30-5.90); White Blood Cell Count 9.26 K/mm3 (4.00-11.30)
--- NOTE | 2023-05-30 04:49 | NUR ---
SHIFT SUMMARY NOC PT A/O X 4. PLEASANT AND COOPERATIVE WITH CARE. NO ACUTE CHANGES TO REPORT. STILL ON ENCHANCED ISO FOR C-19. PT STARTED ON VANCOMYCIN YESTERDAY FOR POSITIVE BLOOD CULTURE. PT REPORTS MINIMAL PAIN IN L BKA POST OP DAY 3. DRESSING C/D/I WITH STUMP STOCKING IN PLACE. PT IS ABLE TO AMBULATE INDEPENDENTLY WITH FWW IN ROOM. PT AT BEDSIDE. PT IS CURRENTLY RESTING WITH BED IN LOWEST POSITION, AND CALL LIGHT WITHIN REACH.
[2023-05-30 05:05] LABS: Albumin, Blood 2.1 g/dL (3.4-5.0); Albumin/Globulin Ratio 0.4 (0.8-1.8); Bilirubin, Total 0.3 mg/dL (0.1-1.0); Bun/Creatinine Ratio 21.6 (12.0-20.0); Calcium, Blood 8.6 mg/dL (8.5-10.1); Creatinine, Blood 0.74 mg/dL (0.60-1.20); Globulin, Blood 5.9 g/dL (2.2-4.0); Potassium, Blood 4.7 mmol/L (3.5-5.5)
[2023-05-30 07:23] VITALS: BP 168/85
[2023-05-30 12:22] LABS: Vancomycin, Trough 18.4 ug/mL (5.0-10.0)
--- NOTE | 2023-05-30 17:16 | NUR ---
SHIFT SUMMARY PT A&OX4 AND PLEASANT. PT WAS ABLE TO WORK WITH OT TODAY AND DID WELL. DR MAY WAS IN TO SEE PT AND CHANGED DRESSING ON LEFT STUMP. INCISION HAD MINIMAL SWELLING OR REDNESS. NO C/O PAIN. PT'S WAS ABLE TO PUSH PT IN WHEELCHAIR AROUND MEDICAL FLOOR TODAY WHICH IMPROVED PT'S MOOD. CONTINUING IV ABX. BED IN LOWEST POSITION AND CALL LIGHT IN REACH.
[2023-05-30 19:52] VITALS: BP 191/90
--- NOTE | 2023-05-31 04:20 | NUR ---
SHIFT SUMMARY 42 YR M ADMITTED ON 05/19/23 FOR LEFT BKA. FULL CODE. NO ACUTE CHANGES THIS SHIFT. PT EXPRESSED THAT HE IS ANNOYED AT GETTING IV ABX EVERY FEW HOURS. HE STATES THAT HE DOESN'T UNDERSTAND WHY HE NEEDS SO MANY ABX. IT WAS EXPLAINED TO HIM THE RISK OF INFECTION BUT HE STILL FEELS THAT IT IS BOTHERSOME. HAS BEEN BEDSIDE ALL NIGHT. PT HAS SLEPT OFF AND ON THROUGHOUT SHIFT. HE IS PLEASANT AND COOPERATIVE WITH CARE AND IS GETTING UP AND GETTING TO THE BATHROOM BY HIMSELF.
[2023-05-31 04:42] VITALS: BP 154/81
[2023-05-31 07:46] VITALS: BP 153/75
[2023-05-31 08:24] LABS: BASOPHILS ABSOLUTE AUTO 0.05 K/mm3 (0.00-0.23); BASOPHILS PERCENT AUTO 1 % (0-2); EOSINOPHILS ABSOLUTE AUTO 0.19 K/mm3 (0.00-0.68); EOSINOPHILS PERCENT AUTO 2 % (0-6); Hematocrit 31.2 % (37.0-53.0); Hemoglobin 9.8 g/dL (13.5-17.5); IMMATURE GRAN ABSOLUTE AUTO 0.09 K/mm3 (0.00-0.10); IMMATURE GRAN PERCENT AUTO 1 % (0-1); LYMPHOCYTES ABSOLUTE AUTO 1.92 K/mm3 (0.84-5.20); LYMPHOCYTES PERCENT AUTO 23 % (21-46); MONOCYTES ABSOLUTE AUTO 0.69 K/mm3 (0.16-1.47); MONOCYTES PERCENT AUTO 8 % (4-13); Mean Corpuscular HGB 25.8 pg (26.0-34.0); Mean Corpuscular HGB Conc 31.4 g/dL (31.5-36.5); Mean Corpuscular Volume 82 fL (80-100); Mean Platelet Volume 9.2 fL (9.1-12.4); NEUTROPHILS ABSOLUTE AUTO 5.46 K/mm3 (1.96-9.15); NEUTROPHILS PERCENT AUTO 65 % (41-73); Platelet Count 566 K/mm3 (150-400); RDW Coefficient Variation 14.6 % (11.7-14.2); RDW Standard Deviation 43.2 fL (35.1-46.3)
[2023-05-31 08:43] LABS: Albumin/Globulin Ratio 0.4 (0.8-1.8); Bilirubin, Total 0.3 mg/dL (0.1-1.0); Bun/Creatinine Ratio 21.7 (12.0-20.0); Calcium, Blood 8.5 mg/dL (8.5-10.1); Creatinine, Blood 0.74 mg/dL (0.60-1.20); Globulin, Blood 5.5 g/dL (2.2-4.0); Potassium, Blood 4.5 mmol/L (3.5-5.5); Total Protein, Blood 7.5 g/dL (6.4-8.2)
[2023-05-31 15:17] VITALS: BP 161/79
[2023-05-31 19:22] VITALS: BP 148/74
--- NOTE | 2023-05-31 19:50 | NUR ---
SHIFT SUMMARY PT A&OX4 AND PLEASANT. NO ACUTE CHANGES. PT CONTINUING TO WORK WITH PHYSICAL THERAPY AND DOING WELL. NO C/O PAIN OR FEELING SOB. INDEPENDENT IN ROOM. PT AWAITING BLOOD CULTURE RESULTS. BED IN LOWEST POSITION AND CALL LIGHT IN REACH.
--- NOTE | 2023-06-01 04:31 | NUR ---
SHIFT SUMMARY A/O4. NO ACUTE CHANGES OVERNIGHT. NO PRN'S GIVEN. PATIENT STAYED AT BEDSIDE. PATIENT AMBULATING INDEPENDENTLY WITH WALKER. PATIENT HAD NO NEW QUESTIONS OR CONCERNS DURING THIS SHIFT. BLOOD CULTURES STILL PENDING. WAS TOLD DURING ONCOMING SHIFT REPOR THAT PATIENT WAS APPROVED FOR INSURANCE BUT CASE MANAGEMENT NOT AWARE YET.
[2023-06-01 05:23] VITALS: BP 156/80
[2023-06-01 07:37] LABS: BASOPHILS ABSOLUTE AUTO 0.07 K/mm3 (0.00-0.23); BASOPHILS PERCENT AUTO 1 % (0-2); EOSINOPHILS ABSOLUTE AUTO 0.17 K/mm3 (0.00-0.68); EOSINOPHILS PERCENT AUTO 2 % (0-6); Hematocrit 31.4 % (37.0-53.0); Hemoglobin 9.9 g/dL (13.5-17.5); IMMATURE GRAN ABSOLUTE AUTO 0.07 K/mm3 (0.00-0.10); IMMATURE GRAN PERCENT AUTO 1 % (0-1); LYMPHOCYTES ABSOLUTE AUTO 2.14 K/mm3 (0.84-5.20); LYMPHOCYTES PERCENT AUTO 23 % (21-46); MONOCYTES ABSOLUTE AUTO 0.76 K/mm3 (0.16-1.47); MONOCYTES PERCENT AUTO 8 % (4-13); Mean Corpuscular HGB 25.8 pg (26.0-34.0); Mean Corpuscular HGB Conc 31.5 g/dL (31.5-36.5); Mean Corpuscular Volume 82 fL (80-100); Mean Platelet Volume 8.6 fL (9.1-12.4); NEUTROPHILS ABSOLUTE AUTO 5.98 K/mm3 (1.96-9.15); NEUTROPHILS PERCENT AUTO 65 % (41-73); Platelet Count 482 K/mm3 (150-400); RDW Coefficient Variation 14.4 % (11.7-14.2); Red Blood Cell Count 3.84 M/mm3 (4.30-5.90); White Blood Cell Count 9.19 K/mm3 (4.00-11.30)
[2023-06-01 08:14] VITALS: BP 165/86
[2023-06-01 15:43] VITALS: BP 145/88
[2023-06-01] MEDS ORDERED: LOSA50 PO (16:20)
[2023-06-01] MEDS ORDERED: CEFD300 PO (16:20)
[2023-06-01] MEDS ORDERED: Neurontin 100100 MG PO (16:21)
[2023-06-01] MEDS ORDERED: HYDHCL25 PO (16:22)
[2023-06-01] MEDS ORDERED: INSULANPEN SC (16:23)
[2023-06-01] MEDS ORDERED: HUMALOG KW100 UNIT/1 SC (16:24)
[2023-06-01] MEDS ORDERED: MELA3 PO (16:24)
[2023-06-01] MEDS ORDERED: VISBIOME 112.51 EACH PO (16:26)
--- NOTE | 2023-06-01 17:27 | NUR ---
PT DISCHARGED 1720 WITH INSTRUCTIONS. WOUND CARE REFERAL FOR OUT PATIENT DRESSING CHANGES. RN CHANGED L STUMP DRESSING BEFORE DC. INCISION WELL APPROXIMATED WITH JANESSA, DRY SCAB WITH SCANT SS DRAINAGE ON GAUZE. REPLACED WITH XEREFORM ABD, CHICKEN SKIN, ABD AND STOCKING TO SECURE. NEW MEDS FAXED TO [facility]. PT TO FOLLOW UP WITH ORTHO IN 2 WEEKS AND SET UP NEW ATRIO PROVIDER. WHEELCHAIR OUT TO PRIVATE CAR, TO DRIVE PT HOME.
== END 2023-06-01 17:30 | disposition home or self-care (01) | DRG 853 ==
LOC: ER 20:46 → ERHOLD 05-19 02:55 → MEDS 05-19 02:55
PROVIDERS: Emergency Medicine; Family Medicine; Hospitalist; Orthopaedic Surgery; Student in an Organized Health Care Education/Training Program; ADMIT Student in an Organized Health Care Education/Training Program
PROC: 8E0ZXY6 Isolation (ICD-10-PCS; 2023-05-19)
PROC: 3E03329 Introduction of Other Anti-infective into Peripheral Vein, Percutaneous Approach (ICD-10-PCS; 2023-05-19)
PROC: 0Y6J0Z1 Detachment at Left Lower Leg, High, Open Approach (ICD-10-PCS; principal; 2023-05-26 15:00)
PROC: B24BZZZ Ultrasonography of Heart with Aorta (ICD-10-PCS; 2023-05-30)
DX: A41.89 Other specified sepsis (principal); U07.1 COVID-19; N17.9 Acute kidney failure, unspecified; M86.8X7 Other osteomyelitis, ankle and foot; E87.1 Hypo-osmolality and hyponatremia; Z68.41 Body mass index [BMI] 40.0-44.9, adult; D64.9 Anemia, unspecified; E11.69 Type 2 diabetes mellitus with other specified complication; E11.621 Type 2 diabetes mellitus with foot ulcer; L97.529 Non-pressure chronic ulcer of other part of left foot with unspecified severity; E11.42 Type 2 diabetes mellitus with diabetic polyneuropathy; G47.00 Insomnia, unspecified; I87.2 Venous insufficiency (chronic) (peripheral); I10 Essential (primary) hypertension; E66.01 Morbid (severe) obesity due to excess calories; G54.7 Phantom limb syndrome without pain; Z79.4 Long term (current) use of insulin; Z88.5 Allergy status to narcotic agent
CPT/HCPCS: 0241U; 36415; 71045; 71046; 73630; 80048; 80053; 80202; 82947; 83036; 83605; 84145; 84484; 85025; 85027; 85045; 87040; 87070; 87076; 87077; 87147; 87186; 87205; 87426; 87811; 88305; 88307; 88311; 93005; 93010; 93306; 94760; 96365; 96366; 96375; 97110; 97110-CQ; 97116; 97161; 97166; 97530; 97535; 99285-25; A9270; J0690; J0692; J1100; J1170; J1650; J1815; J1885; J1956; J2250; J2405; J2543; J2704; J2765; J3010; J3370; J7030; J7050

== ENCOUNTER 2023-06-24 17:12 | Emergency (ER) | payer OTHER ==
[~2023-06-24] VITALS: Ht 182.9 cm; Wt 145.2 kg
[~2023-06-24 17:12] MED LIST changes: +CEFD300 PO; +HUMALOG KW100 UNIT/1 SC; +HYDHCL25 PO; +LOSA50 PO; +MELA3 PO; +METFORMIN HCL500 M3 PO; +Neurontin 100100 MG PO
[2023-06-24 19:31] VITALS: BP 132/83
== END 2023-06-24 20:06 | disposition home or self-care (01) ==
LOC: ER 17:12
DX: Z47.81 Encounter for orthopedic aftercare following surgical amputation (principal); Z89.512 Acquired absence of left leg below knee; E11.9 Type 2 diabetes mellitus without complications; E66.9 Obesity, unspecified; Z68.41 Body mass index [BMI] 40.0-44.9, adult; Z79.4 Long term (current) use of insulin; Z79.899 Other long term (current) drug therapy; Z88.5 Allergy status to narcotic agent
CPT/HCPCS: 99282

== ENCOUNTER → 2023-07-12 | Outpatient (CLI) | payer OTHER | END | disposition home or self-care (01) | LOC: LAB SHORT 14:00 → LAB 14:00 | DX: T87.44 Infection of amputation stump, left lower extremity (principal) | CPT/HCPCS: 87070; 87205 ==

== ENCOUNTER 2024-04-09 17:20 | Emergency (ER) | payer OTHER ==
[~2024-04-09] VITALS: Ht 180.3 cm; Wt 161.0 kg
[2024-04-09 17:58] LABS: BASOPHILS ABSOLUTE AUTO 0.06 K/mm3 (0.00-0.23); BASOPHILS PERCENT AUTO 1 % (0-2); EOSINOPHILS ABSOLUTE AUTO 0.19 K/mm3 (0.00-0.68); EOSINOPHILS PERCENT AUTO 2 % (0-6); Hematocrit 37.2 % (37.0-53.0); Hemoglobin 12.7 g/dL (13.5-17.5); IMMATURE GRAN ABSOLUTE AUTO 0.03 K/mm3 (0.00-0.10); IMMATURE GRAN PERCENT AUTO 0 % (0-1); LYMPHOCYTES ABSOLUTE AUTO 2.42 K/mm3 (0.84-5.20); LYMPHOCYTES PERCENT AUTO 19 % (21-46); MONOCYTES ABSOLUTE AUTO 0.84 K/mm3 (0.16-1.47); MONOCYTES PERCENT AUTO 7 % (4-13); Mean Corpuscular HGB 28.3 pg (26.0-34.0); Mean Corpuscular HGB Conc 34.1 g/dL (31.5-36.5); Mean Corpuscular Volume 83 fL (80-100); Mean Platelet Volume 10.1 fL (9.1-12.4); NEUTROPHILS ABSOLUTE AUTO 8.97 K/mm3 (1.96-9.15); NEUTROPHILS PERCENT AUTO 72 % (41-73); Platelet Count 317 K/mm3 (150-400); RDW Coefficient Variation 12.9 % (11.7-14.2); RDW Standard Deviation 38.8 fL (35.1-46.3); Red Blood Cell Count 4.49 M/mm3 (4.30-5.90); White Blood Cell Count 12.51 K/mm3 (4.00-11.30)
[2024-04-09 18:21] LABS: Albumin/Globulin Ratio 0.7 (0.8-1.8); Bilirubin, Total 0.5 mg/dL (0.1-1.0); Bun/Creatinine Ratio 17.5 (12.0-20.0); Calcium, Blood 8.6 mg/dL (8.5-10.1); Creatinine, Blood 0.8 mg/dL (0.60-1.20); Globulin, Blood 4.5 g/dL (2.2-4.0); Potassium, Blood 3.7 mmol/L (3.5-5.5); Total Protein, Blood 7.5 g/dL (6.4-8.2)
[2024-04-09] MEDS ORDERED: SILD50TA PO (21:54)
[2024-04-09] MEDS ORDERED: NOVOLIN R100 UNIT/2 SQ (21:54)
[2024-04-10 00:15] VITALS: BP 131/68
== END 2024-04-10 00:15 | disposition home or self-care (01) ==
LOC: ER 17:20
PROVIDERS: Physician Assistant
DX: R07.9 Chest pain, unspecified (principal); E11.9 Type 2 diabetes mellitus without complications; Z79.84 Long term (current) use of oral hypoglycemic drugs; Z79.4 Long term (current) use of insulin; Z79.899 Other long term (current) drug therapy; Z88.5 Allergy status to narcotic agent
CPT/HCPCS: 71046; 80053; 83690; 84484; 85025; 93005; 93010; 99285-25

== ENCOUNTER → 2024-11-14 | Outpatient (CLI) | payer OTHER ==
[~2024-11-14] MED LIST changes: +NOVOLIN R100 UNIT/2 SQ; +SILD50TA PO
[2024-11-14 14:38] LABS: Creatinine, Urine Random 99.3 mg/dL (27.00-270.00)
== END | disposition home or self-care (01) ==
LOC: LAB 11:49 → LAB SHORT 11:49
PROVIDERS: Family Medicine
DX: E11.40 Type 2 diabetes mellitus with diabetic neuropathy, unspecified (principal); Z79.4 Long term (current) use of insulin
CPT/HCPCS: 82043; 82570

== ENCOUNTER → 2025-01-02 | Outpatient (CLI) | payer OTHER | LOC: LAB SHORT 10:19 → LAB 10:19 | DX: F33.2 Major depressive disorder, recurrent severe without psychotic features (principal); E11.9 Type 2 diabetes mellitus without complications; Z79.4 Long term (current) use of insulin ==

== ENCOUNTER 2025-02-19 22:14 | Inpatient (IN) | payer OTHER ==
[~2025-02-19] VITALS: Ht 185.4 cm; Wt 130.7 kg
[~2025-02-19 22:14] MED LIST changes: -LOSA50 PO; +LOSARTAN POTAS100 M1 PO
[2025-02-19] MEDS ORDERED: Ondansetron HCl 2 MG / ML 2ML Vial IV PRN (22:25)
[2025-02-19 22:42] LABS: BASOPHILS ABSOLUTE AUTO 0.05 K/mm3 (0.00-0.23); BASOPHILS PERCENT AUTO 0 % (0-2); EOSINOPHILS ABSOLUTE AUTO 0.35 K/mm3 (0.00-0.68); EOSINOPHILS PERCENT AUTO 2 % (0-6); Hematocrit 40.5 % (37.0-53.0); Hemoglobin 12.7 g/dL (13.5-17.5); IMMATURE GRAN ABSOLUTE AUTO 0.07 K/mm3 (0.00-0.10); IMMATURE GRAN PERCENT AUTO 0 % (0-1); LYMPHOCYTES ABSOLUTE AUTO 1.98 K/mm3 (0.84-5.20); LYMPHOCYTES PERCENT AUTO 12 % (21-46); MONOCYTES ABSOLUTE AUTO 0.99 K/mm3 (0.16-1.47); MONOCYTES PERCENT AUTO 6 % (4-13); Mean Corpuscular HGB Conc 31.4 g/dL (31.5-36.5); Mean Corpuscular Volume 86 fL (80-100); NEUTROPHILS ABSOLUTE AUTO 12.95 K/mm3 (1.96-9.15); NEUTROPHILS PERCENT AUTO 79 % (41-73); NRBC ABSOLUTE 0.00 K/mm3 (0.00-0.02); NRBC Auto 0.0 /100 WBC (0.0-0.2); Platelet Count 371 K/mm3 (150-400); RDW Coefficient Variation 14.6 % (11.7-14.2); RDW Standard Deviation 46.9 fL (35.1-46.3)
[2025-02-19 23:01] LABS: Alanine Aminotransfer (ALT/SGP 39.0 U/L (12-78); Albumin, Blood 3.2 g/dL (3.4-5.0); Albumin/Globulin Ratio 0.7 (0.8-1.8); Anion Gap 9.0 mmol/L (3-11); Aspartate Aminotrans (AST/SGOT 14.0 U/L (12-37); Bilirubin, Total 0.6 mg/dL (0.1-1.0); Blood Urea Nitrogen 24.0 mg/dL (8-24); CO2, Blood 29.0 mmol/L (21-32); Calcium, Blood 8.6 mg/dL (8.5-10.1); Chloride, Blood 105.0 mmol/L (98-108); Creatinine, Blood 1.37 mg/dL (0.60-1.20); Globulin, Blood 4.4 g/dL (2.2-4.0); Glucose, Blood 113.0 mg/dL (70-99); Potassium, Blood 4.3 mmol/L (3.5-5.5); Sodium, Blood 139.0 mmol/L (136-145); Total Protein, Blood 7.6 g/dL (6.4-8.2)
[2025-02-20] MEDS ORDERED: CeFAZolin Sodium 2,000 MG in NS 100 ML IV ONE (00:50)
[2025-02-20] MEDS ORDERED: Ondansetron HCl 2 MG / ML 2ML Vial IV PRN (01:30)
[2025-02-20 02:44] VITALS: BP 151/86
[2025-02-20] MEDS ORDERED: TRAZ100 PO (03:44)
[2025-02-20] MEDS ORDERED: TRULICITY1.5 MG/0.1 SC (03:44)
[2025-02-20] MEDS ORDERED: FLUO10 PO (03:45)
[2025-02-20] MEDS ORDERED: PLAVIX75 MG PO (03:45)
[2025-02-20] MEDS ORDERED: LIPITOR80 MG PO (03:47)
[2025-02-20] MEDS ORDERED: AMLO10 PO (03:50)
[2025-02-20] MEDS ORDERED: STEGLATRO15 MG PO (03:51)
[2025-02-20 04:09] LABS: BASOPHILS ABSOLUTE AUTO 0.06 K/mm3 (0.00-0.23); BASOPHILS PERCENT AUTO 0 % (0-2); EOSINOPHILS ABSOLUTE AUTO 0.40 K/mm3 (0.00-0.68); EOSINOPHILS PERCENT AUTO 3 % (0-6); Hematocrit 37.8 % (37.0-53.0); Hemoglobin 11.7 g/dL (13.5-17.5); IMMATURE GRAN ABSOLUTE AUTO 0.05 K/mm3 (0.00-0.10); IMMATURE GRAN PERCENT AUTO 0 % (0-1); LYMPHOCYTES ABSOLUTE AUTO 2.09 K/mm3 (0.84-5.20); LYMPHOCYTES PERCENT AUTO 13 % (21-46); MONOCYTES ABSOLUTE AUTO 1.13 K/mm3 (0.16-1.47); MONOCYTES PERCENT AUTO 7 % (4-13); Mean Corpuscular HGB Conc 31.0 g/dL (31.5-36.5); Mean Corpuscular Volume 87 fL (80-100); NEUTROPHILS ABSOLUTE AUTO 12.28 K/mm3 (1.96-9.15); NEUTROPHILS PERCENT AUTO 77 % (41-73); NRBC ABSOLUTE 0.00 K/mm3 (0.00-0.02); NRBC Auto 0.0 /100 WBC (0.0-0.2); Platelet Count 349 K/mm3 (150-400); RDW Coefficient Variation 14.6 % (11.7-14.2); RDW Standard Deviation 47.2 fL (35.1-46.3)
[2025-02-20 04:39] LABS: Alanine Aminotransfer (ALT/SGP 36.0 U/L (12-78); Albumin, Blood 3.0 g/dL (3.4-5.0); Albumin/Globulin Ratio 0.7 (0.8-1.8); Anion Gap 8.0 mmol/L (3-11); Aspartate Aminotrans (AST/SGOT 13.0 U/L (12-37); Bilirubin, Total 0.5 mg/dL (0.1-1.0); Blood Urea Nitrogen 26.0 mg/dL (8-24); CO2, Blood 28.0 mmol/L (21-32); Calcium, Blood 8.3 mg/dL (8.5-10.1); Chloride, Blood 105.0 mmol/L (98-108); Creatinine, Blood 1.25 mg/dL (0.60-1.20); Globulin, Blood 4.2 g/dL (2.2-4.0); Glucose, Blood 101.0 mg/dL (70-99); Magnesium, Blood 2.1 mg/dL (1.6-2.4); Potassium, Blood 3.6 mmol/L (3.5-5.5); Sodium, Blood 137.0 mmol/L (136-145); Total Protein, Blood 7.2 g/dL (6.4-8.2)
--- NOTE | 2025-02-20 04:55 | NUR ---
SHIFT SUMMARY PT AXO X 4. PT MAINTAINING O2 SATS ABOVE 90% ON RA. REDNESS AND TENDERNESS NOTED TO L BKA STUMP-PICTURES IN CHART. PT RECIEVING IV ABX. PT UP INDEPENDENTLY TO BATHROOM WITH USE OF PROSTHETIC. VSS. PT RESTING IN BED IN NAD. NO MONITOR ORDERS.
[2025-02-20] MEDS ORDERED: Insulin Human Lispro 100 Units/ML 3ML Syringe SC SCH (07:00)
[2025-02-20] MEDS ORDERED: NS 250 ML IV PRN (07:35)
[2025-02-20 07:52] VITALS: BP 132/66
[2025-02-20] MEDS ORDERED: CeFAZolin Sodium 1,000 MG in NS 50 ML IV SCH (08:00)
[2025-02-20] MEDS ORDERED: Enoxaparin 40 MG/0.4 ML SYR SC SCH (09:00)
[2025-02-20] MEDS ORDERED: Lactobacil 2-S.Thermo-Bifido 1 1 Cap PO SCH (09:00)
--- NOTE | 2025-02-20 10:27 | NUR ---
PT TRANSFERRED TO 327 REPORT GIVEN TO SCHUYLER GILMORE. NO ACUTE CHANGE SINCE THE BEGINNING OF THE SHIFT. VITALS HAS BEEN STABLE. PT HAS BEEN INDEPENDENT IN THE ROOM ALERT AND ORIENTED X4 ABLE TO MAKE NEEDS KNOWN. RESIDENT AND DR AKERS ABLE TO ROUND ON PT THIS MORNING AND DISCUSS PLAN OF CARE. NO OTHER ISSUES ENCOUNTERED PT TRANSFERRED VIA WHEELCHAIR. ALL BELONGINGS SENT WITH THE PT
[2025-02-20 10:28] VITALS: BP 155/87
--- NOTE | 2025-02-20 10:35 | NUR ---
TRANSFER 327 PT REPORT RECEIVED FROM DEX RN. PT ARRIVED VIA W/C ACCOMPANIED BY LEHR STRIPPER. PT INDEPENDENT IN ROOM WITH PROSTESIS. FAMILY IN ATTENDANCE. PROVIDED PT WITH A BOTTLE OF ISOPROPYL ALCOHOL AND 4X4 TO CLEAN HIS PROSTETIC SLEEVE PER HIS REQUEST. CARE ONGOING.
[2025-02-20] MEDS ORDERED: AMLO5 PO (11:59)
--- NOTE | 2025-02-20 12:07 | NUR ---
DR TRENT CO MEDICATIONS RECONSILED. DR TRENT CALLED FOR ORDERS. CARE ONGOING.
[2025-02-20 15:23] VITALS: BP 134/63
--- NOTE | 2025-02-20 17:45 | NUR ---
NOTE PT ALERT. INDEPENDENT IN ROOM WITH PROSTETIC. PT CELLULITUS AREA IS VERY PAINFUL BUT PT IS CONTINUING TO DECLINE PAIN MEDICATION. HE SAYS THERE IS A FAMILY HISTORY OF ADDICTIONAND HE DOESN'T WANT ANYTHING. OFFERED TYLENOL. HE DECLINED. PT REFUSED INSULIN COVERAGE FOR DINNER CBG. FAMILY BRINING IN FOOD FOR HIM. HE DOESN'T LIKE THE FOOD HERE. VOIDING PER BATHROOM. VSS. BED LOW AND LOCKED. CALL LIGHT WITH IN REACH. FAMILY AT BEDSIDE. CARE ONGOING.
--- NOTE | 2025-02-20 18:07 | NUR ---
Patient ambulates to bathroom independently. Rounded and all needs are met at this time. Brought ice water and cleaned room. Call light in reach.
[2025-02-20 21:29] VITALS: BP 135/67
[2025-02-21 04:14] VITALS: BP 137/79
--- NOTE | 2025-02-21 04:46 | NUR ---
SHIFT SUMMARY PT HAS BEEN RESTING IN BED COMFORTABLY OVERNIGHT. DX W/ LLE CELLULITIS, HE HAS BEEN C/O PAIN IN L AMPUTATION SITE. HE HAS REFUSED ANY PAIN MEDICATIONS WHEN OFFERED, AND HAS RELIEF W/ REST AND REPOSITIONING. PT HAS BEEN AOX4, CALM AND COOPERATIVE. PT HAS LLE PROSTHESIS, AND HE HAS BEEN SBA TO BATHROOM DESPITE PAIN. PT HAS BEEN ON RA. HE HAS HAD NO COMPLAINTS OVERNIGHT. NO ACUTE EVENTS OVERNIGHT.
[2025-02-21 06:18] LABS: BASOPHILS ABSOLUTE AUTO 0.05 K/mm3 (0.00-0.23); BASOPHILS PERCENT AUTO 0 % (0-2); EOSINOPHILS ABSOLUTE AUTO 0.42 K/mm3 (0.00-0.68); EOSINOPHILS PERCENT AUTO 3 % (0-6); Hematocrit 36.3 % (37.0-53.0); Hemoglobin 11.7 g/dL (13.5-17.5); IMMATURE GRAN ABSOLUTE AUTO 0.04 K/mm3 (0.00-0.10); IMMATURE GRAN PERCENT AUTO 0 % (0-1); LYMPHOCYTES ABSOLUTE AUTO 1.86 K/mm3 (0.84-5.20); LYMPHOCYTES PERCENT AUTO 13 % (21-46); MONOCYTES ABSOLUTE AUTO 1.06 K/mm3 (0.16-1.47); MONOCYTES PERCENT AUTO 7 % (4-13); Mean Corpuscular HGB Conc 32.2 g/dL (31.5-36.5); Mean Corpuscular Volume 87 fL (80-100); NEUTROPHILS ABSOLUTE AUTO 11.09 K/mm3 (1.96-9.15); NEUTROPHILS PERCENT AUTO 76 % (41-73); NRBC ABSOLUTE 0.00 K/mm3 (0.00-0.02); NRBC Auto 0.0 /100 WBC (0.0-0.2); Platelet Count 343 K/mm3 (150-400); RDW Coefficient Variation 14.6 % (11.7-14.2); RDW Standard Deviation 46.7 fL (35.1-46.3)
[2025-02-21 06:49] LABS: Alanine Aminotransfer (ALT/SGP 27.0 U/L (12-78); Albumin, Blood 2.9 g/dL (3.4-5.0); Albumin/Globulin Ratio 0.7 (0.8-1.8); Anion Gap 5.0 mmol/L (3-11); Aspartate Aminotrans (AST/SGOT 12.0 U/L (12-37); Bilirubin, Total 0.4 mg/dL (0.1-1.0); Blood Urea Nitrogen 24.0 mg/dL (8-24); CO2, Blood 31.0 mmol/L (21-32); Calcium, Blood 8.6 mg/dL (8.5-10.1); Chloride, Blood 108.0 mmol/L (98-108); Creatinine, Blood 1.08 mg/dL (0.60-1.20); Globulin, Blood 3.9 g/dL (2.2-4.0); Glucose, Blood 107.0 mg/dL (70-99); Potassium, Blood 3.9 mmol/L (3.5-5.5); Sodium, Blood 140.0 mmol/L (136-145); Total Protein, Blood 6.8 g/dL (6.4-8.2)
[2025-02-21 07:15] VITALS: BP 148/82
[2025-02-21] MEDS ORDERED: CEPH500 PO (15:21)
[2025-02-21] MEDS ORDERED: VISBIOME 112.51 EACH PO (15:22)
[2025-02-21] MEDS ORDERED: DULAGLUTIDE SC SCH (16:00)
[2025-02-21 16:53] VITALS: BP 156/91
--- NOTE | 2025-02-21 18:30 | NUR ---
SHIFT SUMMARY PT IS A/OX4. INDEPENDENT IN THE ROOM. NO ACUTE CHANGES THROUGHOUT THIS SHIFT. CONTINUING IV ANTIBIOTICS. DISCHARGE MEDICATIONS FAXED TO [facility] THIS AFTERNOON TO BE PICKED UP PRIOR TO THE HOLIDAY WEEKENED WITH EXPECTED DISCHARGE IN THE MORNING. FAMILY AT BEDSIDE THROUGHOUT THIS SHIFT. PT IS PLEASANT AND COOPERATIVE WITH CARE AND CALLS APPROPRIATELY USING THE CALL LIGHT.
[2025-02-21 20:48] VITALS: BP 144/73
[2025-02-22 05:11] VITALS: BP 150/89
--- NOTE | 2025-02-22 05:37 | NUR ---
PATIENT HAD A GOOD NIGHT. DENIES PAIN. AMBULATES WELL ON OWN. REDNESS ON LBKA IS DECREASING.
[2025-02-22 05:54] LABS: BASOPHILS ABSOLUTE AUTO 0.04 K/mm3 (0.00-0.23); BASOPHILS PERCENT AUTO 0 % (0-2); EOSINOPHILS ABSOLUTE AUTO 0.34 K/mm3 (0.00-0.68); EOSINOPHILS PERCENT AUTO 3 % (0-6); Hematocrit 36.0 % (37.0-53.0); Hemoglobin 11.4 g/dL (13.5-17.5); IMMATURE GRAN ABSOLUTE AUTO 0.05 K/mm3 (0.00-0.10); IMMATURE GRAN PERCENT AUTO 0 % (0-1); LYMPHOCYTES ABSOLUTE AUTO 1.93 K/mm3 (0.84-5.20); LYMPHOCYTES PERCENT AUTO 14 % (21-46); MONOCYTES ABSOLUTE AUTO 1.06 K/mm3 (0.16-1.47); MONOCYTES PERCENT AUTO 8 % (4-13); Mean Corpuscular HGB Conc 31.7 g/dL (31.5-36.5); Mean Corpuscular Volume 87 fL (80-100); NEUTROPHILS ABSOLUTE AUTO 10.01 K/mm3 (1.96-9.15); NEUTROPHILS PERCENT AUTO 75 % (41-73); NRBC ABSOLUTE 0.00 K/mm3 (0.00-0.02); NRBC Auto 0.0 /100 WBC (0.0-0.2); Platelet Count 372 K/mm3 (150-400); RDW Coefficient Variation 14.6 % (11.7-14.2); RDW Standard Deviation 46.9 fL (35.1-46.3)
[2025-02-22 06:19] LABS: Alanine Aminotransfer (ALT/SGP 24.0 U/L (12-78); Albumin, Blood 2.7 g/dL (3.4-5.0); Albumin/Globulin Ratio 0.7 (0.8-1.8); Anion Gap 3.0 mmol/L (3-11); Aspartate Aminotrans (AST/SGOT 10.0 U/L (12-37); Bilirubin, Total 0.4 mg/dL (0.1-1.0); Blood Urea Nitrogen 24.0 mg/dL (8-24); CO2, Blood 33.0 mmol/L (21-32); Calcium, Blood 9.0 mg/dL (8.5-10.1); Chloride, Blood 107.0 mmol/L (98-108); Creatinine, Blood 1.1 mg/dL (0.60-1.20); Globulin, Blood 4.0 g/dL (2.2-4.0); Glucose, Blood 108.0 mg/dL (70-99); Potassium, Blood 3.8 mmol/L (3.5-5.5); Sodium, Blood 139.0 mmol/L (136-145); Total Protein, Blood 6.7 g/dL (6.4-8.2)
[2025-02-22 07:13] VITALS: BP 149/79
--- NOTE | 2025-02-22 11:10 | NUR ---
PT DISCHARGED TO HOME. ALL VALUABLES RETURNED AND SENT HOME WITH THE PT. DISCHARGE INSTRUCTIONS PROVIDED AND EDUCATED ON AT TIME OF DISCHARGE. MEDICATIONS FAXED TO [facility] ON 02/21/25 AND PT REPORTS HIS HAS ALREADY PICKED THE MEDICATIONS UP.
== END 2025-02-22 11:27 | disposition home or self-care (01) | DRG 565 ==
LOC: ER 22:14 → PCU 02-20 01:27 → MEDS 02-20 01:27 → PCU 02-20 02:49 → MEDS 02-20 10:18
PROVIDERS: Emergency Medicine; ADMIT Student in an Organized Health Care Education/Training Program
DX: T87.44 Infection of amputation stump, left lower extremity (principal); H53.129 Transient visual loss, unspecified eye; L03.116 Cellulitis of left lower limb; L40.9 Psoriasis, unspecified; I25.2 Old myocardial infarction; E11.22 Type 2 diabetes mellitus with diabetic chronic kidney disease; N18.2 Chronic kidney disease, stage 2 (mild); E66.01 Morbid (severe) obesity due to excess calories; D63.1 Anemia in chronic kidney disease; Z68.38 Body mass index [BMI] 38.0-38.9, adult; G47.30 Sleep apnea, unspecified; I12.9 Hypertensive chronic kidney disease with stage 1 through stage 4 chronic kidney disease, or unspecified chronic kidney disease; R07.89 Other chest pain; Z87.442 Personal history of urinary calculi; Z90.89 Acquired absence of other organs; Z89.512 Acquired absence of left leg below knee; Z79.4 Long term (current) use of insulin; Z79.02 Long term (current) use of antithrombotics/antiplatelets; Z79.899 Other long term (current) drug therapy; Z86.73 Personal history of transient ischemic attack (TIA), and cerebral infarction without residual deficits; Z88.5 Allergy status to narcotic agent
CPT/HCPCS: 36415; 71046; 73560-LT; 80053; 82947; 83690; 83735; 84484; 85025; 93005; 93010; 94660; 94762; 96365; 99285-25; A9270; J0690; J1650; J2405; J7050

== ENCOUNTER 2025-03-17 14:11 | Emergency (ER) | payer OTHER ==
[~2025-03-17] VITALS: Ht 185.4 cm; Wt 158.8 kg
[~2025-03-17 14:11] MED LIST changes: +AMLO10 PO; +AMLO5 PO; +FLUO10 PO; +LIPITOR80 MG PO; +PLAVIX75 MG PO; +STEGLATRO15 MG PO; +TRAZ100 PO; +TRULICITY1.5 MG/0.1 SC
[2025-03-17 14:21] VITALS: BP 128/76
[2025-03-17 14:48] LABS: BASOPHILS ABSOLUTE AUTO 0.05 K/mm3 (0.00-0.23); BASOPHILS PERCENT AUTO 0 % (0-2); EOSINOPHILS ABSOLUTE AUTO 0.17 K/mm3 (0.00-0.68); EOSINOPHILS PERCENT AUTO 1 % (0-6); Hematocrit 41.5 % (37.0-53.0); Hemoglobin 13.0 g/dL (13.5-17.5); IMMATURE GRAN ABSOLUTE AUTO 0.03 K/mm3 (0.00-0.10); IMMATURE GRAN PERCENT AUTO 0 % (0-1); LYMPHOCYTES ABSOLUTE AUTO 2.17 K/mm3 (0.84-5.20); LYMPHOCYTES PERCENT AUTO 17 % (21-46); MONOCYTES ABSOLUTE AUTO 0.88 K/mm3 (0.16-1.47); MONOCYTES PERCENT AUTO 7 % (4-13); Mean Corpuscular HGB Conc 31.3 g/dL (31.5-36.5); Mean Corpuscular Volume 88 fL (80-100); NEUTROPHILS ABSOLUTE AUTO 9.80 K/mm3 (1.96-9.15); NEUTROPHILS PERCENT AUTO 75 % (41-73); NRBC ABSOLUTE 0.00 K/mm3 (0.00-0.02); NRBC Auto 0.0 /100 WBC (0.0-0.2); Platelet Count 355 K/mm3 (150-400); RDW Coefficient Variation 14.4 % (11.7-14.2); RDW Standard Deviation 46.8 fL (35.1-46.3)
[2025-03-17 15:16] LABS: Alanine Aminotransfer (ALT/SGP 44.0 U/L (12-78); Albumin, Blood 3.3 g/dL (3.4-5.0); Albumin/Globulin Ratio 0.8 (0.8-1.8); Anion Gap 6.0 mmol/L (3-11); Aspartate Aminotrans (AST/SGOT 19.0 U/L (12-37); Bilirubin, Total 0.5 mg/dL (0.1-1.0); Blood Urea Nitrogen 22.0 mg/dL (8-24); CO2, Blood 31.0 mmol/L (21-32); Calcium, Blood 9.2 mg/dL (8.5-10.1); Chloride, Blood 103.0 mmol/L (98-108); Creatinine, Blood 1.09 mg/dL (0.60-1.20); Globulin, Blood 4.2 g/dL (2.2-4.0); Glucose, Blood 145.0 mg/dL (70-99); Potassium, Blood 4.4 mmol/L (3.5-5.5); Sodium, Blood 136.0 mmol/L (136-145); Total Protein, Blood 7.5 g/dL (6.4-8.2)
[2025-03-17] MEDS ORDERED: CEPH500 PO (16:14)
== END 2025-03-17 16:20 | disposition home or self-care (01) ==
LOC: ER 14:11
PROVIDERS: Emergency Medicine
DX: L03.116 Cellulitis of left lower limb (principal); E11.9 Type 2 diabetes mellitus without complications; D72.829 Elevated white blood cell count, unspecified; Z89.512 Acquired absence of left leg below knee; Z88.5 Allergy status to narcotic agent; Z79.899 Other long term (current) drug therapy
CPT/HCPCS: 80053; 85025; 99283

== ENCOUNTER 2025-03-26 14:28 | Emergency (ER) | payer OTHER ==
[~2025-03-26] VITALS: Ht 185.4 cm; Wt 154.2 kg
[2025-03-26 15:24] LABS: BASOPHILS ABSOLUTE AUTO 0.06 K/mm3 (0.00-0.23); BASOPHILS PERCENT AUTO 1 % (0-2); EOSINOPHILS ABSOLUTE AUTO 0.16 K/mm3 (0.00-0.68); EOSINOPHILS PERCENT AUTO 1 % (0-6); Hematocrit 40.4 % (37.0-53.0); Hemoglobin 12.9 g/dL (13.5-17.5); IMMATURE GRAN ABSOLUTE AUTO 0.03 K/mm3 (0.00-0.10); IMMATURE GRAN PERCENT AUTO 0 % (0-1); LYMPHOCYTES ABSOLUTE AUTO 2.29 K/mm3 (0.84-5.20); LYMPHOCYTES PERCENT AUTO 20 % (21-46); MONOCYTES ABSOLUTE AUTO 0.63 K/mm3 (0.16-1.47); MONOCYTES PERCENT AUTO 5 % (4-13); Mean Corpuscular HGB Conc 31.9 g/dL (31.5-36.5); Mean Corpuscular Volume 86 fL (80-100); NEUTROPHILS ABSOLUTE AUTO 8.56 K/mm3 (1.96-9.15); NEUTROPHILS PERCENT AUTO 73 % (41-73); NRBC ABSOLUTE 0.00 K/mm3 (0.00-0.02); NRBC Auto 0.0 /100 WBC (0.0-0.2); Platelet Count 370 K/mm3 (150-400); RDW Coefficient Variation 14.3 % (11.7-14.2); RDW Standard Deviation 45.3 fL (35.1-46.3)
[2025-03-26 15:47] LABS: Alanine Aminotransfer (ALT/SGP 49.0 U/L (12-78); Albumin, Blood 3.5 g/dL (3.4-5.0); Albumin/Globulin Ratio 0.8 (0.8-1.8); Anion Gap 8.0 mmol/L (3-11); Aspartate Aminotrans (AST/SGOT 20.0 U/L (12-37); Bilirubin, Total 0.5 mg/dL (0.1-1.0); Blood Urea Nitrogen 31.0 mg/dL (8-24); CO2, Blood 27.0 mmol/L (21-32); Calcium, Blood 9.0 mg/dL (8.5-10.1); Chloride, Blood 105.0 mmol/L (98-108); Creatinine, Blood 1.18 mg/dL (0.60-1.20); Globulin, Blood 4.2 g/dL (2.2-4.0); Glucose, Blood 119.0 mg/dL (70-99); Potassium, Blood 4.2 mmol/L (3.5-5.5); Sodium, Blood 136.0 mmol/L (136-145); Total Protein, Blood 7.7 g/dL (6.4-8.2)
[2025-03-26] MEDS ORDERED: NS 1,000 ML IV SCH (16:55)
[2025-03-26 18:45] VITALS: BP 121/75
[2025-03-26] MEDS ORDERED: MECL25 PO (18:46)
== END 2025-03-26 19:05 | disposition home or self-care (01) ==
LOC: ER 14:28
PROVIDERS: Emergency Medicine
DX: R42 Dizziness and giddiness (principal); E11.9 Type 2 diabetes mellitus without complications; Z86.73 Personal history of transient ischemic attack (TIA), and cerebral infarction without residual deficits; Z89.512 Acquired absence of left leg below knee; Z88.5 Allergy status to narcotic agent; Z79.85 Long-term (current) use of injectable non-insulin antidiabetic drugs; Z79.02 Long term (current) use of antithrombotics/antiplatelets; Z79.4 Long term (current) use of insulin; Z79.899 Other long term (current) drug therapy
CPT/HCPCS: 80053; 83735; 85025; 93005; 93010; 96360; 99284-25; A9270; J7030

== ENCOUNTER 2025-04-08 19:06 | Emergency (ER) | payer OTHER ==
[~2025-04-08] VITALS: Ht 185.4 cm; Wt 151.9 kg
[~2025-04-08 19:06] MED LIST changes: +MECL25 PO
[2025-04-08 19:22] VITALS: BP 175/92
[2025-04-08 20:04] LABS: BASOPHILS ABSOLUTE AUTO 0.05 K/mm3 (0.00-0.23); BASOPHILS PERCENT AUTO 0 % (0-2); EOSINOPHILS ABSOLUTE AUTO 0.13 K/mm3 (0.00-0.68); EOSINOPHILS PERCENT AUTO 1 % (0-6); Hematocrit 38.7 % (37.0-53.0); Hemoglobin 12.5 g/dL (13.5-17.5); IMMATURE GRAN ABSOLUTE AUTO 0.06 K/mm3 (0.00-0.10); IMMATURE GRAN PERCENT AUTO 0 % (0-1); LYMPHOCYTES ABSOLUTE AUTO 1.86 K/mm3 (0.84-5.20); LYMPHOCYTES PERCENT AUTO 13 % (21-46); MONOCYTES ABSOLUTE AUTO 0.89 K/mm3 (0.16-1.47); MONOCYTES PERCENT AUTO 6 % (4-13); Mean Corpuscular HGB Conc 32.3 g/dL (31.5-36.5); Mean Corpuscular Volume 86 fL (80-100); NEUTROPHILS ABSOLUTE AUTO 11.94 K/mm3 (1.96-9.15); NEUTROPHILS PERCENT AUTO 80 % (41-73); NRBC ABSOLUTE 0.00 K/mm3 (0.00-0.02); NRBC Auto 0.0 /100 WBC (0.0-0.2); Platelet Count 373 K/mm3 (150-400); RDW Coefficient Variation 14.4 % (11.7-14.2); RDW Standard Deviation 45.0 fL (35.1-46.3)
[2025-04-08 20:43] LABS: Alanine Aminotransfer (ALT/SGP 38.0 U/L (12-78); Albumin, Blood 3.3 g/dL (3.4-5.0); Albumin/Globulin Ratio 0.7 (0.8-1.8); Anion Gap 7.0 mmol/L (3-11); Aspartate Aminotrans (AST/SGOT 18.0 U/L (12-37); Bilirubin, Total 0.4 mg/dL (0.1-1.0); Blood Urea Nitrogen 30.0 mg/dL (8-24); CO2, Blood 25.0 mmol/L (21-32); Calcium, Blood 8.8 mg/dL (8.5-10.1); Chloride, Blood 109.0 mmol/L (98-108); Creatinine, Blood 1.04 mg/dL (0.60-1.20); Globulin, Blood 4.5 g/dL (2.2-4.0); Glucose, Blood 102.0 mg/dL (70-99); Potassium, Blood 4.3 mmol/L (3.5-5.5); Sodium, Blood 137.0 mmol/L (136-145); Total Protein, Blood 7.8 g/dL (6.4-8.2)
== END 2025-04-08 22:43 | disposition home or self-care (01) ==
LOC: ER 19:06
PROVIDERS: Emergency Medicine
DX: T87.89 Other complications of amputation stump (principal); S80.12XA Contusion of left lower leg, initial encounter; X58.XXXA Exposure to other specified factors, initial encounter; D72.829 Elevated white blood cell count, unspecified
CPT/HCPCS: 80053; 85025; 99283

== ENCOUNTER 2025-06-12 22:33 | Emergency (ER) | payer OTHER ==
[~2025-06-12] VITALS: Ht 185.4 cm; Wt 145.2 kg
[2025-06-12] MEDS ORDERED: Ondansetron HCl 2 MG / ML 2ML Vial IV PRN (23:00)
[2025-06-12 23:03] LABS: BASOPHILS ABSOLUTE AUTO 0.05 K/mm3 (0.00-0.23); BASOPHILS PERCENT AUTO 0 % (0-2); EOSINOPHILS ABSOLUTE AUTO 0.17 K/mm3 (0.00-0.68); EOSINOPHILS PERCENT AUTO 1 % (0-6); Hematocrit 39.5 % (37.0-53.0); Hemoglobin 13.0 g/dL (13.5-17.5); IMMATURE GRAN ABSOLUTE AUTO 0.04 K/mm3 (0.00-0.10); IMMATURE GRAN PERCENT AUTO 0 % (0-1); LYMPHOCYTES ABSOLUTE AUTO 1.83 K/mm3 (0.84-5.20); LYMPHOCYTES PERCENT AUTO 15 % (21-46); MONOCYTES ABSOLUTE AUTO 0.79 K/mm3 (0.16-1.47); MONOCYTES PERCENT AUTO 7 % (4-13); Mean Corpuscular HGB Conc 32.9 g/dL (31.5-36.5); Mean Corpuscular Volume 86 fL (80-100); NEUTROPHILS ABSOLUTE AUTO 9.01 K/mm3 (1.96-9.15); NEUTROPHILS PERCENT AUTO 76 % (41-73); NRBC ABSOLUTE 0.00 K/mm3 (0.00-0.02); NRBC Auto 0.0 /100 WBC (0.0-0.2); Platelet Count 336 K/mm3 (150-400); RDW Coefficient Variation 14.1 % (11.7-14.2); RDW Standard Deviation 43.8 fL (35.1-46.3)
[2025-06-12 23:26] LABS: Alanine Aminotransfer (ALT/SGP 49.0 U/L (12-78); Albumin, Blood 3.5 g/dL (3.4-5.0); Albumin/Globulin Ratio 0.9 (0.8-1.8); Anion Gap 8.0 mmol/L (3-11); Aspartate Aminotrans (AST/SGOT 21.0 U/L (12-37); Bilirubin, Total 0.5 mg/dL (0.1-1.0); Blood Urea Nitrogen 22.0 mg/dL (8-24); CO2, Blood 28.0 mmol/L (21-32); Calcium, Blood 9.2 mg/dL (8.5-10.1); Chloride, Blood 107.0 mmol/L (98-108); Creatinine, Blood 1.34 mg/dL (0.60-1.20); Globulin, Blood 4.0 g/dL (2.2-4.0); Glucose, Blood 118.0 mg/dL (70-99); Potassium, Blood 4.0 mmol/L (3.5-5.5); Sodium, Blood 139.0 mmol/L (136-145); Total Protein, Blood 7.5 g/dL (6.4-8.2)
[2025-06-13] MEDS ORDERED: NS 1,000 ML IV SCH (02:30)
[2025-06-13 03:06] LABS: Source, Urine Clean Catch
[2025-06-13 03:47] LABS: Bilirubin, Urine Neg (Neg); Glucose Qualitative, Urine 4+ (Neg); Ketones, Urine 1+ (Neg); Leukocyte Esterase, Urine Neg (Neg); Protein, Urine 2+ (Neg); Specific Gravity, Urine 1.020 (1.003-1.022); Urobilinogen, Urine NORM (Normal)
[2025-06-13 04:22] LABS: Color, Urine Yellow (P-Yellow)
[2025-06-13 04:24] LABS: Red Blood Cells, Urine 0-2 /hpf (0-2); White Blood Cells, Urine 0-2 /hpf (0-5)
[2025-06-13] MEDS ORDERED: Morphine Sulfate 4 MG/1 ML Injection IV ONE (12:50)
[2025-06-13 16:25] VITALS: BP 143/74
== END 2025-06-13 16:27 | disposition home or self-care (01) ==
LOC: ER 22:33
PROVIDERS: Emergency Medicine
DX: R07.9 Chest pain, unspecified (principal); D72.829 Elevated white blood cell count, unspecified; R20.2 Paresthesia of skin; R42 Dizziness and giddiness; E86.0 Dehydration; E11.9 Type 2 diabetes mellitus without complications; Z88.5 Allergy status to narcotic agent; Z79.899 Other long term (current) drug therapy
CPT/HCPCS: 70450; 70551; 71046; 71275; 80053; 81001; 83690; 84484; 85025; 93005; 93010; 96361; 96374-59; 96375-59; 99285-25; J2270; J2405; J7030; Q9967

== ENCOUNTER → 2025-07-17 | Outpatient (CLI) | payer OTHER ==
[2025-07-17 15:25] LABS: BASOPHILS ABSOLUTE AUTO 0.04 K/mm3 (0.00-0.23); BASOPHILS PERCENT AUTO 0 % (0-2); EOSINOPHILS ABSOLUTE AUTO 0.15 K/mm3 (0.00-0.68); EOSINOPHILS PERCENT AUTO 1 % (0-6); Hematocrit 41.0 % (37.0-53.0); Hemoglobin 13.4 g/dL (13.5-17.5); IMMATURE GRAN ABSOLUTE AUTO 0.04 K/mm3 (0.00-0.10); IMMATURE GRAN PERCENT AUTO 0 % (0-1); LYMPHOCYTES ABSOLUTE AUTO 1.64 K/mm3 (0.84-5.20); LYMPHOCYTES PERCENT AUTO 14 % (21-46); MONOCYTES ABSOLUTE AUTO 0.72 K/mm3 (0.16-1.47); MONOCYTES PERCENT AUTO 6 % (4-13); Mean Corpuscular HGB Conc 32.7 g/dL (31.5-36.5); Mean Corpuscular Volume 87 fL (80-100); NEUTROPHILS ABSOLUTE AUTO 9.31 K/mm3 (1.96-9.15); NEUTROPHILS PERCENT AUTO 78 % (41-73); NRBC ABSOLUTE 0.00 K/mm3 (0.00-0.02); NRBC Auto 0.0 /100 WBC (0.0-0.2); Platelet Count 338 K/mm3 (150-400); RDW Coefficient Variation 13.9 % (11.7-14.2); RDW Standard Deviation 44.3 fL (35.1-46.3)
[2025-07-17 15:54] LABS: Alanine Aminotransfer (ALT/SGP 61.0 U/L (12-78); Albumin, Blood 3.3 g/dL (3.4-5.0); Albumin/Globulin Ratio 0.8 (0.8-1.8); Anion Gap 7.0 mmol/L (3-11); Aspartate Aminotrans (AST/SGOT 30.0 U/L (12-37); Bilirubin, Total 0.4 mg/dL (0.1-1.0); Blood Urea Nitrogen 25.0 mg/dL (8-24); CO2, Blood 28.0 mmol/L (21-32); Calcium, Blood 8.9 mg/dL (8.5-10.1); Chloride, Blood 106.0 mmol/L (98-108); Creatinine, Blood 0.99 mg/dL (0.60-1.20); Ferritin, Serum 110.0 ng/mL (26-388); Globulin, Blood 4.2 g/dL (2.2-4.0); Glucose, Blood 98.0 mg/dL (70-99); Magnesium, Blood 2.2 mg/dL (1.6-2.4); Potassium, Blood 3.8 mmol/L (3.5-5.5); Sodium, Blood 137.0 mmol/L (136-145); Total Iron Binding Capacity 251.0 ug/dL (250-450); Total Protein, Blood 7.5 g/dL (6.4-8.2)
== END | disposition home or self-care (01) ==
LOC: LAB SHORT 12:54 → LAB 12:54
PROVIDERS: Family Medicine
DX: D72.829 Elevated white blood cell count, unspecified (principal); G43.E19 Chronic migraine with aura, intractable, without status migrainosus; R63.4 Abnormal weight loss
CPT/HCPCS: 80053; 82728; 83540; 83550; 83735; 85025; 85651

== ENCOUNTER → 2025-08-14 | Outpatient (CLI) | payer OTHER ==
[2025-08-14 15:34] LABS: BASOPHILS ABSOLUTE AUTO 0.05 K/mm3 (0.00-0.23); BASOPHILS PERCENT AUTO 1 % (0-2); EOSINOPHILS ABSOLUTE AUTO 0.19 K/mm3 (0.00-0.68); EOSINOPHILS PERCENT AUTO 2 % (0-6); Hematocrit 43.6 % (37.0-53.0); Hemoglobin 14.4 g/dL (13.5-17.5); IMMATURE GRAN ABSOLUTE AUTO 0.02 K/mm3 (0.00-0.10); IMMATURE GRAN PERCENT AUTO 0 % (0-1); LYMPHOCYTES ABSOLUTE AUTO 1.62 K/mm3 (0.84-5.20); LYMPHOCYTES PERCENT AUTO 17 % (21-46); MONOCYTES ABSOLUTE AUTO 1.09 K/mm3 (0.16-1.47); MONOCYTES PERCENT AUTO 12 % (4-13); Mean Corpuscular HGB Conc 33.0 g/dL (31.5-36.5); Mean Corpuscular Volume 87 fL (80-100); NEUTROPHILS ABSOLUTE AUTO 6.35 K/mm3 (1.96-9.15); NEUTROPHILS PERCENT AUTO 68 % (41-73); NRBC ABSOLUTE 0.00 K/mm3 (0.00-0.02); NRBC Auto 0.0 /100 WBC (0.0-0.2); Platelet Count 363 K/mm3 (150-400); RDW Coefficient Variation 13.9 % (11.7-14.2); RDW Standard Deviation 44.9 fL (35.1-46.3)
[2025-08-14 15:44] LABS: C-REACTIVE PROTEIN, EXT RANGE 2.74 mg/dL (0.000-0.300)
[2025-08-14 15:46] LABS: Alanine Aminotransfer (ALT/SGP 63.0 U/L (12-78); Albumin, Blood 3.7 g/dL (3.4-5.0); Albumin/Globulin Ratio 0.9 (0.8-1.8); Anion Gap 7.0 mmol/L (3-11); Aspartate Aminotrans (AST/SGOT 26.0 U/L (12-37); Bilirubin, Total 0.3 mg/dL (0.1-1.0); Blood Urea Nitrogen 36.0 mg/dL (8-24); CO2, Blood 26.0 mmol/L (21-32); Calcium, Blood 9.4 mg/dL (8.5-10.1); Chloride, Blood 108.0 mmol/L (98-108); Creatinine, Blood 1.16 mg/dL (0.60-1.20); Globulin, Blood 4.2 g/dL (2.2-4.0); Glucose, Blood 104.0 mg/dL (70-99); Potassium, Blood 3.9 mmol/L (3.5-5.5); Sodium, Blood 137.0 mmol/L (136-145); Total Protein, Blood 7.9 g/dL (6.4-8.2)
== END | disposition home or self-care (01) ==
LOC: LAB SHORT 11:20 → LAB 11:20
PROVIDERS: Family Medicine
DX: R51.9 Headache, unspecified (principal)
CPT/HCPCS: 80053; 85025; 85651; 86140